=== PATIENT | female | born 1940 | race Caucasian/White ===

== ENCOUNTER 2019-02-13 13:44 | Inpatient (IN) | payer MEDICARE ==
[~2019-02-13] VITALS: Ht 149.9 cm; Wt 51.8 kg
[2019-02-13 16:33] LABS: BASOPHILS ABSOLUTE AUTO 0.04 K/mm3 (0.00-0.23); BASOPHILS PERCENT AUTO 1 % (0-2); EOSINOPHILS ABSOLUTE AUTO 0.04 K/mm3 (0.00-0.68); EOSINOPHILS PERCENT AUTO 1 % (0-6); Hematocrit 49.9 % (33.0-51.0); Hemoglobin 15.2 g/dL (11.5-16.0); IMMATURE GRAN ABSOLUTE AUTO 0.02 K/mm3 (0.00-0.10); IMMATURE GRAN PERCENT AUTO 0 % (0-1); LYMPHOCYTES ABSOLUTE AUTO 1.56 K/mm3 (0.84-5.20); LYMPHOCYTES PERCENT AUTO 21 % (21-46); MONOCYTES ABSOLUTE AUTO 0.69 K/mm3 (0.16-1.47); MONOCYTES PERCENT AUTO 9 % (4-13); Mean Corpuscular HGB 28.8 pg (26.0-34.0); Mean Corpuscular HGB Conc 30.5 g/dL (31.5-36.5); Mean Corpuscular Volume 95 fL (80-100); Mean Platelet Volume 10.7 fL (9.1-12.4); NEUTROPHILS ABSOLUTE AUTO 5.07 K/mm3 (1.96-9.15); NEUTROPHILS PERCENT AUTO 68 % (41-73); Platelet Count 183 K/mm3 (150-400); RDW Coefficient Variation 14.4 % (11.7-14.2); RDW Standard Deviation 50.1 fL (35.1-46.3); Red Blood Cell Count 5.27 M/mm3 (3.80-5.20); White Blood Cell Count 7.42 K/mm3 (4.00-11.30)
[2019-02-13 16:37] LABS: PCO2 Arterial 43.2 mmHg (35-45); PO2 Arterial 70.5 mmHg (80-100); pH Blood Arterial 7.41 (7.35-7.45)
[2019-02-13 17:00] LABS: Albumin/Globulin Ratio 0.9 (0.8-1.8); Bilirubin, Total 0.8 mg/dL (0.1-1.0); Bun/Creatinine Ratio 18.6 (12.0-20.0); Calcium, Blood 8.8 mg/dL (8.5-10.1); Creatinine, Blood 1.02 mg/dL (0.40-1.00); Globulin, Blood 3.5 g/dL (2.2-4.0); Potassium, Blood 4.7 mmol/L (3.5-5.5); Total Protein, Blood 6.5 g/dL (6.4-8.2); Troponin I 0.033 ng/mL (0.000-0.040)
--- NOTE | 2019-02-14 07:33 | NUR ---
SHIFT SUMMARY PT WAS A NEW ADMIT DURING THE NIGHT. SHE WAS ADMITTED FOR VOLUME OVERLOAD. PT IS ABLE TO TRANSFER SBA TO THE [facility]. PT IS A&O X 4. NO COMPLAINTS OF PAIN OR NAUSEA. THIS AM, PT HAD A SUDDEN EPISODE OF SOB AND CHEST "TIGHTNESS", THOUGH SHE DENIED CHEST PAIN. VITALS AND O2 SATS WERE STABLE, THOUGH PT WAS BREATHING RAPIDLY IN THE 30S. A STAT EKG WAS TAKEN, WHICH WAS UNCHANGED FROM PREVIOUS. THE HOSPITALIST DR NUÑEZ WAS INFORMED. NITRO AND ASPIRIN WERE UNABLE TO BE GIVEN DUE TO PT ALLERGIES, SO BREATHING TREATMENTS AND A OT DOSE OF ATIVAN WERE ORDERED. PT REFUSED THE ATIVAN. PT DID REPORT THAT BREATHING IMPROVED WITH POSITIONING, BUT IS STILL REPORTING CHEST PRESSURE. NO OTHER ACUTE CHANGES IN PT CONDITION NOTED. REPORT GIVEN TO ONCOMING RN.
[2019-02-14 08:14] LABS: BASOPHILS ABSOLUTE AUTO 0.05 K/mm3 (0.00-0.23); BASOPHILS PERCENT AUTO 1 % (0-2); EOSINOPHILS ABSOLUTE AUTO 0.21 K/mm3 (0.00-0.68); EOSINOPHILS PERCENT AUTO 3 % (0-6); Hematocrit 43.2 % (33.0-51.0); Hemoglobin 13.5 g/dL (11.5-16.0); IMMATURE GRAN ABSOLUTE AUTO 0.02 K/mm3 (0.00-0.10); IMMATURE GRAN PERCENT AUTO 0 % (0-1); LYMPHOCYTES ABSOLUTE AUTO 1.86 K/mm3 (0.84-5.20); LYMPHOCYTES PERCENT AUTO 28 % (21-46); MONOCYTES ABSOLUTE AUTO 0.83 K/mm3 (0.16-1.47); MONOCYTES PERCENT AUTO 13 % (4-13); Mean Corpuscular HGB 29.4 pg (26.0-34.0); Mean Corpuscular HGB Conc 31.3 g/dL (31.5-36.5); Mean Corpuscular Volume 94 fL (80-100); Mean Platelet Volume 10.3 fL (9.1-12.4); NEUTROPHILS ABSOLUTE AUTO 3.68 K/mm3 (1.96-9.15); NEUTROPHILS PERCENT AUTO 55 % (41-73); Platelet Count 148 K/mm3 (150-400); RDW Coefficient Variation 14.4 % (11.7-14.2); RDW Standard Deviation 49.1 fL (35.1-46.3); Red Blood Cell Count 4.59 M/mm3 (3.80-5.20); White Blood Cell Count 6.65 K/mm3 (4.00-11.30)
[2019-02-14 08:41] LABS: Bun/Creatinine Ratio 17.3 (12.0-20.0); Calcium, Blood 8.5 mg/dL (8.5-10.1); Creatinine, Blood 1.1 mg/dL (0.40-1.00); Potassium, Blood 4.1 mmol/L (3.5-5.5); Troponin I 0.039 ng/mL (0.000-0.040)
--- NOTE | 2019-02-14 18:40 | NUR ---
Initial spiritual care note: Per admit trigger, I was tasked to meet with Janine to offer information regarding Advanced Directive. She tells me that she has been estranged from her adult children and does NOT want them contacted or consulted for decisions on her behalf. She verbalizes understanding of purpose of AD, but wants to soeak to the stuart of her [facility] community before completing paperwork. Advised her to do this soon, especially if she wishes someone besides her family to make decisions on her behalf if/when she cannot. Janine was pleasant and welcoming of prayer/encouragement. I will remain available.
--- NOTE | 2019-02-14 21:34 | NUR ---
REMOVED FIELD START IV IN RIGHT AC. IV SITE WAS PAINFUL AND LEAKING BLOOD. NEW 18 JOI IV INSERTED INTO LEFT WRIST AND FLUSHES WELL. PATIENT TOLERATED WELL.
[2019-02-15 05:12] LABS: BASOPHILS ABSOLUTE AUTO 0.04 K/mm3 (0.00-0.23); BASOPHILS PERCENT AUTO 1 % (0-2); EOSINOPHILS ABSOLUTE AUTO 0.26 K/mm3 (0.00-0.68); EOSINOPHILS PERCENT AUTO 4 % (0-6); Hematocrit 42.4 % (33.0-51.0); Hemoglobin 13.2 g/dL (11.5-16.0); IMMATURE GRAN ABSOLUTE AUTO 0.03 K/mm3 (0.00-0.10); IMMATURE GRAN PERCENT AUTO 0 % (0-1); LYMPHOCYTES ABSOLUTE AUTO 1.66 K/mm3 (0.84-5.20); LYMPHOCYTES PERCENT AUTO 23 % (21-46); MONOCYTES ABSOLUTE AUTO 0.81 K/mm3 (0.16-1.47); MONOCYTES PERCENT AUTO 11 % (4-13); Mean Corpuscular HGB 29.1 pg (26.0-34.0); Mean Corpuscular HGB Conc 31.1 g/dL (31.5-36.5); Mean Corpuscular Volume 93 fL (80-100); Mean Platelet Volume 10.7 fL (9.1-12.4); NEUTROPHILS ABSOLUTE AUTO 4.53 K/mm3 (1.96-9.15); NEUTROPHILS PERCENT AUTO 62 % (41-73); Platelet Count 151 K/mm3 (150-400); RDW Coefficient Variation 14.2 % (11.7-14.2); RDW Standard Deviation 49.1 fL (35.1-46.3); Red Blood Cell Count 4.54 M/mm3 (3.80-5.20); White Blood Cell Count 7.33 K/mm3 (4.00-11.30)
[2019-02-15 05:40] LABS: Anion Gap 5 mmol/L (6-16); Blood Urea Nitrogen 21 mg/dL (8-24); Bun/Creatinine Ratio 18.3 (12.0-20.0); CHOL/HDL RATIO 3.2; CO2, Blood 33 mmol/L (21-32); Calcium, Blood 8.4 mg/dL (8.5-10.1); Chloride, Blood 99 mmol/L (98-108); Cholesterol 112 mg/dL (50-200); Creatinine, Blood 1.15 mg/dL (0.40-1.00); Glomerular Filtration Rate 49 (60-); Glucose, Blood 195 mg/dL (70-99); HDL Cholesterol 35 mg/dL (>39); LDL/HDL RATIO 1.7; Low Density Lipoprotein Chol 59 mg/dL (0-110); Potassium, Blood 3.9 mmol/L (3.5-5.5); Sodium, Blood 137 mmol/L (136-145); Triglycerides 91 mg/dL (30-160); Very Low Density Lipoprot Chol 18 mg/dL (6-32)
--- NOTE | 2019-02-15 06:44 | NUR ---
SHIFT SUMMARY PATIENT ALERT AND ORIENTED ALL NIGHT. SHE HAS MADE IT KNOWN THAT SHE IS VERY NERVOUS AT THE THOUGHT OF A POSSIBLE THRACENTESIS TODAY. SHE IS CURRENTLY ON 3 LITERS O2 VIA NASAL CANULA. PATIENT HAD NO COMPLAINT OF PAIN. IV PATENT AND FLUSHED. BED IN LOWEST POSITION WITH WHEELS LOCKED. CALL LIGHT AND BELONGINGS WITHIN REACH. REPORT GIVEN TO ONCOMING NURSE.
[2019-02-15 08:50] LABS: International Normalized Ratio 1.13; Prothrombin Time Results 11.8 Sec (9.7-11.5)
--- NOTE | 2019-02-15 18:56 | NUR ---
PT. SITTING IN BED IN GOOD SPIRITS. HAD THORACENTESIS OF RIGHT LUNG TODAY REMOVED 750 CC OF YELLOW FLUID, NPO AFTER MIDNIGHT FOR THORACENTIESIS OF LEFT LUNG. BANDAID ON RIGHT BACK CD&I. NO LOVENOX.
--- NOTE | 2019-02-15 20:42 | NUR ---
PT SITTING UP IN BED, DENIES PAIN AT THIS TIME. RT HAS GIVEN A TREATMENT AND SHE IS FEELING COMFORTABLE JUST NOW, HAS SOME DISCOMFORT WITH COUGHING. DISCUSSED THAT SHE SHOULD NOT EAT OR DRINK ANYTHING AFTER MIDNIGHT FOR HER THOROCENTESIS TOMORROW. PT IS AO4, PLEASANT AND COOPERATIVE WITH CARE. PT REPORTS NEUROPATHY (NOT NEW) B/L HANDS AND FEET. 1+ EDEMA B/L LEs. PT OOB TO BSC TO VOID.
--- NOTE | 2019-02-15 23:31 | NUR ---
2240: RECHECKING PT VS FOR LOW BP AT 2130. NOW 90s/50s. PT LUNG SOUNDS ARE DIMINSHED NOW, ESPECIALLY ON THE RIGHT WHERE SHE WAS GOOD AND CLEAR AT START OF SHIFT. PT FOUND TO BE DE-SATURATING TO 86% ON 2L; BUMPED TO 6.5L AND CALLED RT. PT BPS TOO LOW FOR LASIX. DISCUSSED WITH RN CAMP. CALLED TO RASHEED ORTIZ WHO ORDERED A STAT CHEST ERAY AND WILL COME SEE THE PATIENT. WILL CONTIUE TO MONITOR. BED LOW LOCKED AND ALARMED. CALL LARA WITHIN REACH. CHEST XRAY COMPLETED.
[2019-02-16 04:32] LABS: BASOPHILS ABSOLUTE AUTO 0.02 K/mm3 (0.00-0.23); BASOPHILS PERCENT AUTO 0 % (0-2); EOSINOPHILS ABSOLUTE AUTO 0.15 K/mm3 (0.00-0.68); EOSINOPHILS PERCENT AUTO 3 % (0-6); Hematocrit 44.1 % (33.0-51.0); Hemoglobin 13.9 g/dL (11.5-16.0); IMMATURE GRAN ABSOLUTE AUTO 0.01 K/mm3 (0.00-0.10); IMMATURE GRAN PERCENT AUTO 0 % (0-1); LYMPHOCYTES ABSOLUTE AUTO 1.45 K/mm3 (0.84-5.20); LYMPHOCYTES PERCENT AUTO 24 % (21-46); MONOCYTES ABSOLUTE AUTO 0.73 K/mm3 (0.16-1.47); MONOCYTES PERCENT AUTO 12 % (4-13); Mean Corpuscular HGB Conc 31.5 g/dL (31.5-36.5); Mean Corpuscular Volume 92 fL (80-100); Mean Platelet Volume 10.8 fL (9.1-12.4); NEUTROPHILS ABSOLUTE AUTO 3.65 K/mm3 (1.96-9.15); NEUTROPHILS PERCENT AUTO 61 % (41-73); Platelet Count 144 K/mm3 (150-400); RDW Standard Deviation 47.5 fL (35.1-46.3); Red Blood Cell Count 4.79 M/mm3 (3.80-5.20); White Blood Cell Count 6.01 K/mm3 (4.00-11.30)
[2019-02-16 04:58] LABS: Bun/Creatinine Ratio 19.2 (12.0-20.0); Calcium, Blood 8.6 mg/dL (8.5-10.1); Creatinine, Blood 1.2 mg/dL (0.40-1.00); Potassium, Blood 3.7 mmol/L (3.5-5.5)
--- NOTE | 2019-02-16 16:30 | NUR ---
PT IS A/OX3, PLEASANT AND COOPERATIVE, THE PT IS UP IND TO THE BSC, SOB WITH MINIMAL EXCERTION, THIS AM THE PT WAS ON 5L/MIN O2 VIA NC, THIS AFTERNOON THE PT HAD A THOROCENTISIS PROCEDURE DONE ON THE LEFT SIDE, THE PT WAS ABLE TO BREATH EASIER AND O2 WAS TURNED DOWN TO 3L/MIN PT'S O2 SATS ARE >90% AT THIS TIME, THE PT DEVELOPED A DRY HACKING PERSISTANT COUGH S/P THOROCENTISIS, A CALL WAS MADE TO DR. CHAVEZ AND ORDERS WERE GIVEN, TESSALON PEARLS WERE GIVEN FOR COUGH, AT THIS TIME THE PT IS UP WITH THE PHYSICAL THERAPIST AND AMBULATED A SHORT DISTANCE IN HER ROOM, CALL LIGHT IN REACH, WILL CONTINUE TO MONITOR AND ASSESS FOR CHANGES
--- NOTE | 2019-02-16 23:27 | NUR ---
AT SHIFT COMMENCE, BP WAS 80/57 PER MACHINE. (SEE DOC FLOW SHEETS), PANCAKE PROFESSIONAL WAS NOTIFIED AND ORDERED TO MONITOR PT HAD SIMILAR ISUES 24 HR PREVIOUS. (THORACENTESIS, ETC). ALERT AND ORIENTED, UP WITH ASSIST. AROUND 2230, BP WA UNABLE TO BE OBTAINED BY MACHINE, WEAK BP PER MANUAL OBTAINED (80/50), VOICED LETHARGY. PANCAKE PROFESSIONAL WAS NOTIFIED AGAIN, ORDERS FOR ALBUMIN OBTAINED. ALBUMIN CURRENTLY INFUSING. WILL CONTINUE TO MONITOR.
--- NOTE | 2019-02-17 03:58 | NUR ---
BP HAS BEEN LOW MOST OF THE SHIFT, WSA DROPPING TO THE 80'S OVER 30'S - SEE DOC FLOW SHEETS. LABORATORY COORDINATOR NOTIFIED, ALBUMIN ADMINISTERED, LATEST BP WAS 95/54. MORE ALERT AND RESPONSIVE TO QUESTIONS ASKED. TOLERATING FLUIDS BETTER THAN BEFORE. CALL LIGHT IN REACH. WILL CONTINUE TO MONITOR.
--- NOTE | 2019-02-17 04:20 | NUR ---
BP 107/66. BP WAS LOW 80/36, BUT ALBUMININ WAS ADMINSINERED PER RETAIL SERVICE SPECIALIST ORDERS, MED EFECIVE. RESTING QUIETLY AT IN TERVALS SINCE. VOIDING QS. AWAKE ERALIER, VOICED FEELING BETTER. CALL LIGHT IN REACH. FEET REMAIN ELEVATED.
[2019-02-17 05:38] LABS: Bun/Creatinine Ratio 17.1 (12.0-20.0); Calcium, Blood 8.1 mg/dL (8.5-10.1); Creatinine, Blood 1.11 mg/dL (0.40-1.00); Potassium, Blood 3.7 mmol/L (3.5-5.5)
--- NOTE | 2019-02-17 19:09 | NUR ---
SHIFT SUMMARY JUDITH DENIED PAIN THIS SHIFT. COMPLAINED OF NAUSEA X2 BUT DECLINED ANTIEMETIC. REFUSED INSULIN ALSO. TELE SHOWING NSR. SBA TO BR WITH WALKER, PT CALLS APPROPRIATELY. FRIENDS VISITED. PT RESTED COMFORTABLY IN BED MOST OF AFTERNOON. CALL LIGHT IN REACH, WCTM
--- NOTE | 2019-02-18 02:54 | NUR ---
VSS. Resting quietly with few interuptions. Up to bathroom with walker and observation. No noted acute distress. Call light in reach. Will continue to monitor.
[2019-02-18 05:25] LABS: BASOPHILS ABSOLUTE AUTO 0.02 K/mm3 (0.00-0.23); BASOPHILS PERCENT AUTO 0 % (0-2); EOSINOPHILS ABSOLUTE AUTO 0.21 K/mm3 (0.00-0.68); EOSINOPHILS PERCENT AUTO 3 % (0-6); Hematocrit 42.2 % (33.0-51.0); Hemoglobin 12.9 g/dL (11.5-16.0); IMMATURE GRAN ABSOLUTE AUTO 0.01 K/mm3 (0.00-0.10); IMMATURE GRAN PERCENT AUTO 0 % (0-1); LYMPHOCYTES ABSOLUTE AUTO 1.37 K/mm3 (0.84-5.20); LYMPHOCYTES PERCENT AUTO 20 % (21-46); MONOCYTES ABSOLUTE AUTO 0.89 K/mm3 (0.16-1.47); MONOCYTES PERCENT AUTO 13 % (4-13); Mean Corpuscular HGB 28.7 pg (26.0-34.0); Mean Corpuscular HGB Conc 30.6 g/dL (31.5-36.5); Mean Corpuscular Volume 94 fL (80-100); Mean Platelet Volume 10.8 fL (9.1-12.4); NEUTROPHILS ABSOLUTE AUTO 4.37 K/mm3 (1.96-9.15); NEUTROPHILS PERCENT AUTO 64 % (41-73); Platelet Count 123 K/mm3 (150-400); RDW Coefficient Variation 13.7 % (11.7-14.2); RDW Standard Deviation 47.8 fL (35.1-46.3); Red Blood Cell Count 4.49 M/mm3 (3.80-5.20); White Blood Cell Count 6.87 K/mm3 (4.00-11.30)
[2019-02-18 05:53] LABS: Albumin, Blood 2.5 g/dL (3.4-5.0); Anion Gap 5 mmol/L (6-16); Blood Urea Nitrogen 17 mg/dL (8-24); Bun/Creatinine Ratio 15.7 (12.0-20.0); CO2, Blood 40 mmol/L (21-32); Calcium, Blood 8.4 mg/dL (8.5-10.1); Chloride, Blood 95 mmol/L (98-108); Creatinine, Blood 1.08 mg/dL (0.40-1.00); Glomerular Filtration Rate 52 (60-); Glucose, Blood 101 mg/dL (70-99); Phosphorus, Blood 2.7 mg/dL (2.5-4.9); Potassium, Blood 4.3 mmol/L (3.5-5.5); Sodium, Blood 140 mmol/L (136-145)
--- NOTE | 2019-02-18 18:04 | NUR ---
SHIFT SUMMARY PT 1 PERSON ASSIST UP TO BATHROOM USING A CLAUDIA WALKER. HAS BEEN REPORTING ONGOING EPIGASTRIC PAIN THAT EBBS AND FLOWS AND WORSENS WHEN SHE GETS UP OR SITS UP. DECLINES ANYTHING STATING ITS HER NORMAL. HOPES TO DISCHARGE TOMORROW. SOB WITH EXERTION.
--- NOTE | 2019-02-19 05:08 | NUR ---
Has been resting quietly with a few interruptions. Noted slight epistaxis x 3, was notified and was instructed to continue to monitor pt. Up to bathroom with assist x 2. And received Zofran x 1 for N/V. Currently resting quietly. Call light in reach. Will continue to monitor.
[2019-02-19 05:25] LABS: Bun/Creatinine Ratio 14.5 (12.0-20.0); Calcium, Blood 8.4 mg/dL (8.5-10.1); Creatinine, Blood 1.1 mg/dL (0.40-1.00); Potassium, Blood 3.9 mmol/L (3.5-5.5)
--- NOTE | 2019-02-19 07:00 | NUR ---
ASSUMED CARE OF PT- BEDSIDE REPORT COMPLETED WITH [facility] RN ROB. PER REPORT PT HAD SOME LOW PRESSURES RECENTLY. PT ON TELE RUNNING NSR. PT C/O UPSET STOMACH THIS MORNING. WHEN OFFERED MEDICATION PT SAID "I DON'T HAVE A STOMACH, WHAT I HAVE ARE POLLYPS ALL OVER." PT DECLINED ANY MEDICINE FOR UPSET STOMACH.
--- NOTE | 2019-02-19 08:45 | NUR ---
SPOKE TO DR LO. PT SBP LESS THAN 100 ALL BP MEDS HELD. IV LASIX TO BE CHANGED TO PO NO MORNING DOSE GIVEN. DR ROBERTSON.
--- NOTE | 2019-02-19 12:25 | NUR ---
INITIAL PAL CARE ASSESSMENT: PT IS 78 YEAR OLD SINGLE FEMALE WHO HAS REQUESTED HELP WITH COMPLETING AN AD. SHE REPORTS SHE HAS CHILDREN, SOME LOCALLY, BUT "NONE OF THEM HAVE ANYTHING TO DO WITH ME". SHE IS CONCERNED THAT THEY WOULD BE ALLOWED TO OVERIDE HER OR HER APPOINTED SURROGATE DECISION MAKER'S CHOICES. PT IS LYING IN BED, CURLED ON HER SIDE WITH HOB ELEVATED, SPEAKING WITH ME AND HER FRIEND FROM [employer]. SHE HAS A BLANK AD FORM ON HER BED STAND. SHE STATES SHE HAS BEEN TOO TIRED TO WORK ON IT. SHE IS SL DYSPNIC WITH CONVERSATION. SHE HAS A NASAL CANULA WITH O2 AND EVIDENCE OF EPISTAXIX RECENTLY WITH BLOOD STAINED CANULA. 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 SHE HAS EXPRESSED WANTING TO BE A DNR AND HER ORDERS REFLECT THIS. PT DENIES CHEST PAIN BUT REPORTS ABDOMINAL PAIN FROM "HUNDREDS OF POLYPS". SHE SAID HER COMFORT LEVEL IS AT BASELINE FOR HER NORM. SHE DENIES ANY DISTRESSING S/S, ANXIETY, HINOJOSA, NAUSEA OR PAIN. SHE DOES APPEAR SLIGHTLY ANXIOUS REGARDING MEDICAL DECISION MAKING AND SOBOE. SHE WOULD LIKE HER HUSSEIN OR FRIEND TO BE HER MEDICAL POA BUT HAS NOT SPOKEN TO THEM ABOUT IT YET. WE DISCUSSED DOCUMENTING HER WISHES FOR HER CARE IN THE AD WOULD BE A STEP IN ALEVIATING THE BURDEN FOR A DECISION MAKER TO ACT ON HER BEHALF VS HAVING TO DECIDE FOR HER WITHOUT PRIOR KNOWLEDGE OF HER WISHES. WE REVIEWED THE ADVANCED DIRECTIVE FORM, WORKSHEETS AND PROCESS. I OFFERED TO RETURN IF SHE WOULD LIKE ME TO HELP WHEN SHE WAS FEELING UP TO IT. SHE MENTIONED POSSIBLY GOING TO [facility] SOON AND I ENCOURAGED HER TO CONTINUE WORKING ON IT AND GETTING SIGNATURES OF ALTERNATE DECISION MAKERS AND WITNESSES SO SHE WOULD FEEL LESS STRESSED ABOUT THE POSSIBILITY OF HAVING AN UNDESIRABLE FAMILY MEMBER MAKE DECISIONS FOR HER. INSTRUCTED HER TO SUPPLY HER DR, [place] AND HOSPITAL WITH A COPY ONCE IT WAS COMPLETED. PLANNED WITH HER TO CHECK IN WITH HER TOMORROW AND KERRI IF SHE IS STILL HERE. FRIEND AT BEDSIDE SEEMED SUPPORTIVE AND VERBALLY AGREED SHE WOULD BE WILLING TO HELP PT. PT ALSO HAD QUESTIONS ABOUT PRE-PAYING ARRANGEMENTS AND I DIRECTED HER TO CONTACT LOCAL HOMES RE: RULES, WAYS TO DO THAT.
--- NOTE | 2019-02-19 17:19 | NUR ---
SHIFT SUMMARY- PT ALERT AND ORIENTED, 1PA TO THE BATHROOM AND WITH AMBULATION. PT HAS HAD HYPOTENSION RECENTLY, SBP THIS MORNING LESS THAN 100 NO BP MEDS GIVEN PER PARAMETERS. THIS EVENINGS DOSE OF CARVEDILOL WAS GIVEN SBP 106. PT NSR ON TELE RECIEVED ORDER TO CONTINUE TELE PER DR LO. PT LAYING IN BED CALL LIGHT IN REACH. PT ADIMANTLY REFUSES INSULIN DESPITE HER BG OF 250. PT STATES SHE GETS EXTREMELY WEAK IF HER SUGARS ARE LESS THAN 200. PLAN IS TO DC PT TO SNF WHEN SHE IS STABLE. DNR BAND ON THE RIGHT WRIST.
--- NOTE | 2019-02-20 05:38 | NUR ---
02/20/19 0530 PT SLEPT WELL. VITALS STABLE AND DID WELL ON FLUID RESTRICTION. UP TO THE BATHROOM WITH HELP FOR VOIDINGS. O2 AT 3LPM VIA N/C THIS SHIFT.
[2019-02-20 06:15] LABS: Albumin, Blood 2.4 g/dL (3.4-5.0); Anion Gap 4 mmol/L (6-16); Blood Urea Nitrogen 19 mg/dL (8-24); Bun/Creatinine Ratio 17.6 (12.0-20.0); CO2, Blood 35 mmol/L (21-32); Calcium, Blood 8.5 mg/dL (8.5-10.1); Chloride, Blood 100 mmol/L (98-108); Creatinine, Blood 1.08 mg/dL (0.40-1.00); Glomerular Filtration Rate 52 (60-); Glucose, Blood 120 mg/dL (70-99); Phosphorus, Blood 2.6 mg/dL (2.5-4.9); Potassium, Blood 4.3 mmol/L (3.5-5.5); Sodium, Blood 139 mmol/L (136-145)
--- NOTE | 2019-02-20 18:44 | NUR ---
PT. STILL EATING ON HER DINNER. TOLERATING WELL. REPORTED HEADACHE EARLIER AND DR. LO SAID TO WRITE AN ORDEER FOR TYLENOL, UPON SEEING SHE WAS ALLERGIC I DID NOT PUT THE ORDER IN. DR. LO WROTE FOR ULTRAM BUT THE PT. REFUSED. WAS GIVEN A COLD WASH CLOTH AND SHE REPORTED IT WAS MUCH BETTER. POSSIBLE DISCHARGE TO [facility] TOMORROW. NO OTHER NOTEABLE CHANGES.
--- NOTE | 2019-02-21 05:37 | NUR ---
02/21/19 0455 C/O SLIGHT NAUSEA. MEDICATED PER APR. BLOOD SUGAR CHECKED AND IT WAS 161. VITALS STABLE THIS SHIFT. SLEPT POORLY FOR NON-SPECIFIC REASONS. STATES SHE HAS CHRONIC SLEEP PROBLEMS FOR YEARS. RN ATTEMPTED TO CHANGE IV SITE FOR ROUTINE ROTATION BUT UNABLE X 2 ATTEMPTS. PRESENT IV LEFT IN PLACE.
--- NOTE | 2019-02-21 17:46 | NUR ---
SHIFT SUMMARY: NO ACUTE CHANGES TO REPORT THIS SHIFT. PT A&O; CALM AND COOPERATIVE WITH CARE. NO C/O PAIN THIS SHIFT; ONE COMPLAINT OF NAUSEA, BUT REFUSING MEDS-STATES SALTINE CRACKERS WILL SUFFICE. PT UP WITH 1-ASSIST c WALKER TO BATHROOM. PATIENT REFUSING ANY INSULIN COVERAGE FOR HER ELEVATED BLOOD SUGARS; STATES INSULIN ADMINISTRATION HAS ALMOST KILLED HER TWICE IN THE PAST. PATIENT MEDICALLY STABLE AND READY FOR DISCHARGE; EXPECTED D/C TO [facility] 02/22. WCTM.
--- NOTE | 2019-02-22 04:26 | NUR ---
SHIFT SUMMARY AOX4. VSS. TELE IN PLACE, RUNNING NSR HR@82. DENIES DYSPNEA @REST. DECREASED O2 FROM 3L TO 1.5L & SPO2 @92%. E/U RESPIRATIONS. LUNGS SOUND DIM T/O LLL IS COURSE TO AUSCULTATION. REPORTS NAUSEA THIS AM, YET DENIES NEED FOR ANY NAUSEA MEDICATION, STATES SHE USUALLY GETS NAUSEOUS IN THE AM & "SALTINES HELP." CALL LIGHT IN REACH. WCTM.
[2019-02-22] MEDS ORDERED: ATOR10 PO (10:41)
[2019-02-22] MEDS ORDERED: ALBU2.5V5 INH (10:41)
[2019-02-22] MEDS ORDERED: CARV3.125 PO (10:42)
[2019-02-22] MEDS ORDERED: BENZ100A PO (10:42)
[2019-02-22] MEDS ORDERED: LOSA25 PO (10:43)
[2019-02-22] MEDS ORDERED: GLIM2 PO (10:43)
[2019-02-22] MEDS ORDERED: FURO40 PO (10:43)
[2019-02-22] MEDS ORDERED: POTA10T PO (10:43)
[2019-02-22] MEDS ORDERED: TRAM50 PO (10:44)
[2019-02-22] MEDS ORDERED: XARELTO15 MG PO (10:44)
[2019-02-22] MEDS ORDERED: LEVO750 PO (10:45)
--- NOTE | 2019-02-22 11:51 | NUR ---
PT DISCHARGED PT DISCHARGED TO [facility], REPORT WAS CALLED TO AND GIVEN TO THE NURSE INVENTORY MANAGER AT [facility] THE PT WAS TRANSPORTED VIA WHEELCHAIR ACCOMPANIED BY [facility], PT WAS ON RA AT THE TIME OF DISCHARGE O2 SAT'S WERE > 90%, BELONGINGS RELEASED TO THE PT
== END 2019-02-22 10:26 | DRG 291 ==
LOC: ER 13:44 → MEDS 17:58
PROVIDERS: Family Medicine; Internal Medicine Cardiovascular Disease; Nurse Practitioner Acute Care; Physician Assistant; ADMIT Hospitalist
PROC: 0W9930Z Drainage of Right Pleural Cavity with Drainage Device, Percutaneous Approach (ICD-10-PCS; principal; 2019-02-15)
DX: I13.0 Hypertensive heart and chronic kidney disease with heart failure and stage 1 through stage 4 chronic kidney disease, or unspecified chronic kidney disease (principal); J96.01 Acute respiratory failure with hypoxia; I50.21 Acute systolic (congestive) heart failure; J18.9 Pneumonia, unspecified organism; J44.0 Chronic obstructive pulmonary disease with (acute) lower respiratory infection; N17.9 Acute kidney failure, unspecified; I25.2 Old myocardial infarction; I25.10 Atherosclerotic heart disease of native coronary artery without angina pectoris; Z86.73 Personal history of transient ischemic attack (TIA), and cerebral infarction without residual deficits; Z66 Do not resuscitate; E78.5 Hyperlipidemia, unspecified; D69.6 Thrombocytopenia, unspecified; E87.6 Hypokalemia; E11.22 Type 2 diabetes mellitus with diabetic chronic kidney disease; N18.3 Chronic kidney disease, stage 3 (moderate); R04.0 Epistaxis; T45.515A Adverse effect of anticoagulants, initial encounter; Y92.239 Unspecified place in hospital as the place of occurrence of the external cause; I95.9 Hypotension, unspecified; I25.5 Ischemic cardiomyopathy; I51.3 Intracardiac thrombosis, not elsewhere classified
CPT/HCPCS: 32555; 36415; 36600; 51798; 71045; 71046; 74018; 76770; 80048; 80053; 80061; 80069; 82803; 82947; 83036; 83880; 84145; 84443; 84484; 85025; 85610; 85730; 93005; 93010; 93306; 94640; 94667; 94760; 96374; 97110; 97116; 97162; 97166; 97530; 97535; 99285-25; J1650; J1940; J1956; J2405; P9046

== ENCOUNTER 2020-05-23 13:50 | Inpatient (IN) | payer OTHER, MEDICARE ==
[~2020-05-23] VITALS: Ht 147.3 cm; Wt 52.1 kg
[~2020-05-23 13:50] MED LIST: ALBU2.5V5 INH; ATOR10 PO; BENZ100A PO; CARV3.125 PO; FURO40 PO; GLIM2 PO; LEVO750 PO; LOSA25 PO; POTA10T PO; TRAM50 PO; XARELTO15 MG PO
[2020-05-23 17:08] LABS: BASOPHILS ABSOLUTE AUTO 0.06 K/mm3 (0.00-0.23); BASOPHILS PERCENT AUTO 0 % (0-2); EOSINOPHILS ABSOLUTE AUTO 0.02 K/mm3 (0.00-0.68); EOSINOPHILS PERCENT AUTO 0 % (0-6); Hematocrit 42.5 % (33.0-51.0); Hemoglobin 14.6 g/dL (11.5-16.0); IMMATURE GRAN ABSOLUTE AUTO 0.14 K/mm3 (0.00-0.10); IMMATURE GRAN PERCENT AUTO 1 % (0-1); LYMPHOCYTES ABSOLUTE AUTO 1.89 K/mm3 (0.84-5.20); LYMPHOCYTES PERCENT AUTO 11 % (21-46); MONOCYTES ABSOLUTE AUTO 1.12 K/mm3 (0.16-1.47); MONOCYTES PERCENT AUTO 7 % (4-13); Mean Corpuscular HGB 30.1 pg (26.0-34.0); Mean Corpuscular HGB Conc 34.4 g/dL (31.5-36.5); Mean Corpuscular Volume 88 fL (80-100); NEUTROPHILS ABSOLUTE AUTO 13.61 K/mm3 (1.96-9.15); NEUTROPHILS PERCENT AUTO 81 % (41-73); Platelet Count 191 K/mm3 (150-400); RDW Coefficient Variation 12.4 % (11.7-14.2); RDW Standard Deviation 39.6 fL (35.1-46.3); Red Blood Cell Count 4.85 M/mm3 (3.80-5.20); White Blood Cell Count 16.84 K/mm3 (4.00-11.30)
[2020-05-23 17:26] LABS: International Normalized Ratio 0.96; Prothrombin Time Results 10.3 Sec (9.7-11.5)
[2020-05-23 17:27] LABS: Alanine Aminotransfer (ALT/SGP 28 U/L (12-78); Albumin, Blood 3.8 g/dL (3.4-5.0); Alk Phos 132 U/L (50-136); Anion Gap 10 mmol/L (6-16); Aspartate Aminotrans (AST/SGOT 26 U/L (12-37); Bilirubin, Total 0.6 mg/dL (0.1-1.0); Blood Urea Nitrogen 22 mg/dL (8-24); Bun/Creatinine Ratio 23.7 (12.0-20.0); CO2, Blood 22 mmol/L (21-32); Calcium, Blood 9.4 mg/dL (8.5-10.1); Chloride, Blood 107 mmol/L (98-108); Creatinine, Blood 0.93 mg/dL (0.40-1.00); Globulin, Blood 3.8 g/dL (2.2-4.0); Glomerular Filtration Rate >60 (60-); Glucose, Blood 420 mg/dL (70-99); Potassium, Blood 3.8 mmol/L (3.5-5.5); Sodium, Blood 139 mmol/L (136-145); Total Protein, Blood 7.6 g/dL (6.4-8.2)
[2020-05-23 22:38] LABS: Influenza A, PCR NEGATIVE (NEGATIVE); Influenza B, PCR NEGATIVE (NEGATIVE); Resp Syncytial Virus, PCR NEGATIVE (NEGATIVE); SARS-Cov-2 (COVID-19) PCR, MMC NEGATIVE (NEGATIVE)
--- NOTE | 2020-05-24 05:36 | NUR ---
SHIFT SUMMARY ASSUMED CARE OF PT AT 2200. PT IS A/OX4. HEART SOUNDS REGULAR, LUNG SOUNDS CLEAR. PT IS INCONTIENT OF URINE. PT IS VERY PAINFUL BUT RFUSED TO TAKE NORCO DUE TO THE FACT THAT SHE IS "ALLERGIC" TO IT. PT DID RECEIVE FENYAL IN ED, WHEN ASKED WHAT SHE COULD HAVE FOR PAIN, PT ASKED IF SHE COULD HAVE THIS. PT WAS INITIALLY GIVEN 25MCG WITH LITTLE EFFECTS, PT WAS THEN GIVEN 50MGC TWO HOURS LATER AND PT VOMITED. PT STATES ITS BEUCASE "SHE IS ALLERGIC TO THINGS". PT HAS BEEN ON CLEAR LIQUIDS SINCE 0000 FOR SURGUERY THIS AM. PT IS VERY AFRAID OF DYING IN THE OPERATING ROOM BEUCASE SHE IS ALLERGIC TO THE ANESTESIA. PT HAS HAD 'CAREGIVER' IN ROOM WITH HER T/O THE NIGHT. SHE SAID THAT THEY ARE GOOD FRIENDS AND SHE HAS HEALTH PROXY. FORMS IN CHART. SHE SAYS THAT SHE NEEDS TO BE THERE MENTALLY FOR PATIENT. CALL LIGHT IN REACH, BED IN LOWEST POSTION.
[2020-05-24 05:38] LABS: BASOPHILS ABSOLUTE AUTO 0.04 K/mm3 (0.00-0.23); BASOPHILS PERCENT AUTO 0 % (0-2); EOSINOPHILS ABSOLUTE AUTO 0.04 K/mm3 (0.00-0.68); EOSINOPHILS PERCENT AUTO 0 % (0-6); Hematocrit 40.5 % (33.0-51.0); Hemoglobin 13.8 g/dL (11.5-16.0); IMMATURE GRAN ABSOLUTE AUTO 0.05 K/mm3 (0.00-0.10); IMMATURE GRAN PERCENT AUTO 0 % (0-1); LYMPHOCYTES ABSOLUTE AUTO 1.63 K/mm3 (0.84-5.20); LYMPHOCYTES PERCENT AUTO 13 % (21-46); MONOCYTES ABSOLUTE AUTO 1.11 K/mm3 (0.16-1.47); MONOCYTES PERCENT AUTO 9 % (4-13); Mean Corpuscular HGB 30.1 pg (26.0-34.0); Mean Corpuscular HGB Conc 34.1 g/dL (31.5-36.5); Mean Corpuscular Volume 88 fL (80-100); Mean Platelet Volume 10.6 fL (9.1-12.4); NEUTROPHILS ABSOLUTE AUTO 9.44 K/mm3 (1.96-9.15); NEUTROPHILS PERCENT AUTO 77 % (41-73); Platelet Count 146 K/mm3 (150-400); RDW Coefficient Variation 12.9 % (11.7-14.2); RDW Standard Deviation 41.8 fL (35.1-46.3); Red Blood Cell Count 4.58 M/mm3 (3.80-5.20); White Blood Cell Count 12.31 K/mm3 (4.00-11.30)
[2020-05-24 06:04] LABS: Alanine Aminotransfer (ALT/SGP 27 U/L (12-78); Albumin, Blood 3.2 g/dL (3.4-5.0); Albumin/Globulin Ratio 0.8 (0.8-1.8); Alk Phos 98 U/L (50-136); Anion Gap 8 mmol/L (6-16); Aspartate Aminotrans (AST/SGOT 24 U/L (12-37); Blood Urea Nitrogen 19 mg/dL (8-24); Bun/Creatinine Ratio 21.2 (12.0-20.0); CO2, Blood 24 mmol/L (21-32); Calcium, Blood 9.1 mg/dL (8.5-10.1); Chloride, Blood 108 mmol/L (98-108); Globulin, Blood 3.8 g/dL (2.2-4.0); Glomerular Filtration Rate >60 (60-); Glucose, Blood 336 mg/dL (70-99); Magnesium, Blood 2.1 mg/dL (1.6-2.4); Potassium, Blood 4.6 mmol/L (3.5-5.5); Sodium, Blood 140 mmol/L (136-145)
--- NOTE | 2020-05-24 12:00 | NUR ---
TRANSFER NOTE PT TRANSFERRED TO OR FOR R HIP SURGERY. PT AxOx4 WITH HEALTHCARE PROXY, KITTY, IN ROOM. PT NPO FOR SURGERY. BLOOD CONSENT FORM SIGNED. MEDICATED FOR PAIN THIS AM. PT REFUSED ALL OTHER MEDICATIONS THIS AM, INCLUDING CARDIAC MEDS AND INSULIN. PT VERY ANXIOUS AND FEARFUL FOR SURGERY. REPORTS HAVING BAD EXPERIENCES WITH SURGERY AND MEDICAL ERROR IN THE PAST LEADING TO FURTHER HEALTHCARE COMPLICATIONS. THERAPEUTIC COMMUNICATION PROVIDED. REPORT CALLED TO DAMASO MAX ON SURGICAL FLOOR AFTER PT WAS TAKEN TO OR. VITALS REVIEWED. PT DENIES ANY NEEDS AT THIS TIME. PT TRANSFERRED SAFELY TO OR IN BED WITH XIN HAYES.
--- NOTE | 2020-05-24 16:16 | NUR ---
05/24/20 1616 [facility],HIGINIO X2 K WIRES USED [id number], REF # [id number], LOT# [id number], EXP 10/28/24. REF# [id number], LOT# [id number], EXP 10-28-24
--- NOTE | 2020-05-24 16:31 | NUR ---
PT ARRIVED TO UNIT AT APROX 1615 FROM PACU. PT IS A/O, ANSWERS QUESTIONS APPROPRIATLY. PT REPORTS THAT SHE IS PAINFUL BUT TOLERABLE, FALLS BACK ASLEEP EASILY. DENIES N/V AT TIME OF ARRIVAL.
--- NOTE | 2020-05-25 04:18 | NUR ---
SHIFT SUMMARY PT HAS BEEN A/O X4. BEDREST R/T PAIN, REPOSITIONED TOLERATED. SCDS IN PLACE. PT HAS BEEN MOSTLY UNABLE TO VOID. BLADDER SCAN SHOWED OVER 500. PT PLACED ON BEDPAN AND ABLE TO VOID SMALL AMOUNT. DISCUSSED VOIDING POST-OP AND URINARY RETENTION. PT STATED THAT SHE CANNOT HAVE A CATHETER OF ANY TYPE FOR ANY REASON. BIOINFORMATICS ASSISTANT AWARE. ATTENS IN PLACE. PAIN MANAGED WITH 25 FENTANYL PER ORDERS. IV FLUIDS HAVE BEEN INFUSING OVERNIGHT. PT USING O2 POST-OP. WEANED FROM 3L DOWN TO 1.5L OVERNIGHT. PT IS RESTING IN BED AT THIS TIME WITH CALL LIGHT IN REACH.
--- NOTE | 2020-05-25 16:51 | NUR ---
SHIFT SUMMARY PT A&OX4, VSS/RA, POD1 R HIP NAILING, AQUACEL DRY/INTACT, WBAT. AMBULATES W/FWW/GB, STAND PIVOT TO BSC, CHAIR, TERESITA PO CLEAR/FULL LIQUID. PHYSICAL THERAPY EVAL'D. VOIDING WELL. DENIES NEED FOR PAIN MEDICATION, LIDOCAINE PATCH RIGHT THIGH. WILL REPORT TO ONCOMING NOC RN.
--- NOTE | 2020-05-26 04:49 | NUR ---
SHIFT SUMMARY PT IS A/O X4. 1X ASSIST WITH FWW AND GAIT BELT UP TO BSC. PT HAS REPORTED DISCOMFORT OVERNIGHT IN HIP BUT HAS REFUSED PAIN MEDICATIONS. PT ALSO REPORTED DISCOMFORT IN HEELS. HEEL PROTECTORS PLACED AND HEELS FLOATED WITH LEGS ON PILLOWS. SHE IS TOLERATING PO INTAKE W/O NAUSEA. PT RESTING IN BED AT THIS TIME, CALL LIGHT IN REACH.
[2020-05-26 05:11] LABS: Hematocrit 32.2 % (33.0-51.0); Hemoglobin 10.5 g/dL (11.5-16.0); Mean Corpuscular HGB 30.1 pg (26.0-34.0); Mean Corpuscular HGB Conc 32.6 g/dL (31.5-36.5); Mean Corpuscular Volume 92 fL (80-100); Mean Platelet Volume 10.3 fL (9.1-12.4); Platelet Count 124 K/mm3 (150-400); RDW Standard Deviation 43.8 fL (35.1-46.3); Red Blood Cell Count 3.49 M/mm3 (3.80-5.20); White Blood Cell Count 9.54 K/mm3 (4.00-11.30)
[2020-05-26 05:32] LABS: Alanine Aminotransfer (ALT/SGP 19 U/L (12-78); Albumin, Blood 2.6 g/dL (3.4-5.0); Albumin/Globulin Ratio 0.8 (0.8-1.8); Alk Phos 64 U/L (50-136); Anion Gap 6 mmol/L (6-16); Aspartate Aminotrans (AST/SGOT 21 U/L (12-37); Bilirubin, Total 0.5 mg/dL (0.1-1.0); Blood Urea Nitrogen 27 mg/dL (8-24); CO2, Blood 25 mmol/L (21-32); Chloride, Blood 109 mmol/L (98-108); Creatinine, Blood 0.93 mg/dL (0.40-1.00); Globulin, Blood 3.2 g/dL (2.2-4.0); Glomerular Filtration Rate >60 (60-); Glucose, Blood 106 mg/dL (70-99); Potassium, Blood 3.5 mmol/L (3.5-5.5); Sodium, Blood 140 mmol/L (136-145); Total Protein, Blood 5.8 g/dL (6.4-8.2)
--- NOTE | 2020-05-26 11:28 | NUR ---
IV REMOVED FROM LFA R/T LEAKING.
--- NOTE | 2020-05-26 13:30 | NUR ---
Patient is sitting on a chair and alert. Patient immediately tells me about her medical history going back to and the many health trials that she has had to overcome, she tells me about the astrangement from her family and about her [employer] violet background. She explains that her difficulties have made her violet stronger and that her entire family has pulled away from the violet. She also shares about her horrible experiences with the health care facilities in [place]. She tells me that she has been in health care for 20yrs and feels like she continually gets care less then she provided to others. I provide therapeutic listening and prayer. Patient responds well and shows signs of reduced stress. I will continue to remain available.
[2020-05-26 15:46] LABS: Influenza A, PCR NEGATIVE (NEGATIVE); Influenza B, PCR NEGATIVE (NEGATIVE); Resp Syncytial Virus, PCR NEGATIVE (NEGATIVE); SARS-Cov-2 (COVID-19) PCR, MMC NEGATIVE (NEGATIVE)
--- NOTE | 2020-05-26 16:26 | NUR ---
SHIFT SUMMARY PT IS POD#2 FROM R GAMMA NAILING WITH DR. COBURN. PT IS PAINFUL WITH MOVEMENT BUT HAS DECLINED THE NEED FOR PAIN MEDICATION. PT ALSO DECLINED HER ASPIRIN, DR. OROZCO NOTIFIED. PT IS A 1 PERSON ASSIST WITH GAIT BELT AND WALKER FOR TRANSFERS. PLAN FOR DC TO [facility] THIS EVENING.
--- NOTE | 2020-05-26 17:56 | NUR ---
DISCHARGE REPORT CALLED TO JOSE AT [facility] PRIOR TO DISCHARGE. DISCHARGE PACKET, DRESSINGS AND SCRIPT SENT WITH PATIENT. PT LEFT VIA [facility] TRANSPORT TO [facility].
== END 2020-05-26 18:02 | DRG 481 ==
LOC: ER 13:50 → MEDS 20:29 → ERHOLD 20:29 → SURS 20:29 → MEDS 21:52 → SURS 05-24 11:55
PROVIDERS: Emergency Medicine; Orthopaedic Surgery; ADMIT Internal Medicine
PROC: 0QS636Z Reposition Right Upper Femur with Intramedullary Internal Fixation Device, Percutaneous Approach (ICD-10-PCS; principal; 2020-05-24 12:00)
DX: S72.144A Nondisplaced intertrochanteric fracture of right femur, initial encounter for closed fracture (principal); I50.22 Chronic systolic (congestive) heart failure; Z20.822 Contact with and (suspected) exposure to COVID-19; I25.10 Atherosclerotic heart disease of native coronary artery without angina pectoris; J44.9 Chronic obstructive pulmonary disease, unspecified; E11.65 Type 2 diabetes mellitus with hyperglycemia; I11.0 Hypertensive heart disease with heart failure; I51.3 Intracardiac thrombosis, not elsewhere classified; I25.2 Old myocardial infarction; Z86.73 Personal history of transient ischemic attack (TIA), and cerebral infarction without residual deficits; Z90.710 Acquired absence of both cervix and uterus; Z98.890 Other specified postprocedural states; Z88.0 Allergy status to penicillin; Z88.1 Allergy status to other antibiotic agents; Z88.2 Allergy status to sulfonamides; Z88.5 Allergy status to narcotic agent; Z88.8 Allergy status to other drugs, medicaments and biological substances; W18.39XA Other fall on same level, initial encounter; Y92.009 Unspecified place in unspecified non-institutional (private) residence as the place of occurrence of the external cause
CPT/HCPCS: 0241U; 36415; 70450; 71045; 72070; 72100; 72125; 73502; 73552; 73560-RT; 77066; 80053; 82947; 83735; 85025; 85027; 85610; 86850; 86900; 86901; 93005; 93010; 96374; 96375; 97110; 97116; 97162; 97166; 97530; 99285-25; A9270; C1713; C1769; G0279; J0690; J1100; J1815; J2370; J2405; J2704; J2710; J2765; J3010; J7030; J7120

== ENCOUNTER → 2020-12-11 | Outpatient (CLI) | payer OTHER ==
[2020-12-11 19:22] LABS: BASOPHILS ABSOLUTE AUTO 0.02 K/mm3 (0.00-0.23); BASOPHILS PERCENT AUTO 0 % (0-2); EOSINOPHILS ABSOLUTE AUTO 0.27 K/mm3 (0.00-0.68); EOSINOPHILS PERCENT AUTO 3 % (0-6); Hematocrit 39.1 % (33.0-51.0); Hemoglobin 12.8 g/dL (11.5-16.0); IMMATURE GRAN ABSOLUTE AUTO 0.02 K/mm3 (0.00-0.10); IMMATURE GRAN PERCENT AUTO 0 % (0-1); LYMPHOCYTES ABSOLUTE AUTO 2.46 K/mm3 (0.84-5.20); LYMPHOCYTES PERCENT AUTO 31 % (21-46); MONOCYTES ABSOLUTE AUTO 0.68 K/mm3 (0.16-1.47); MONOCYTES PERCENT AUTO 9 % (4-13); Mean Corpuscular HGB 30.6 pg (26.0-34.0); Mean Corpuscular HGB Conc 32.7 g/dL (31.5-36.5); Mean Corpuscular Volume 94 fL (80-100); NEUTROPHILS ABSOLUTE AUTO 4.42 K/mm3 (1.96-9.15); NEUTROPHILS PERCENT AUTO 56 % (41-73); Platelet Count 146 K/mm3 (150-400); RDW Coefficient Variation 13.6 % (11.7-14.2); RDW Standard Deviation 46.5 fL (35.1-46.3); Red Blood Cell Count 4.18 M/mm3 (3.80-5.20); White Blood Cell Count 7.87 K/mm3 (4.00-11.30)
[2020-12-11 19:38] LABS: Albumin, Blood 3.5 g/dL (3.4-5.0); Albumin/Globulin Ratio 0.9 (0.8-1.8); Bilirubin, Total 0.3 mg/dL (0.1-1.0); Bun/Creatinine Ratio 36.6 (12.0-20.0); Calcium, Blood 9.1 mg/dL (8.5-10.1); Creatinine, Blood 0.93 mg/dL (0.40-1.00); Globulin, Blood 4.1 g/dL (2.2-4.0); Potassium, Blood 4.9 mmol/L (3.5-5.5); Thyroid Stimulating Hormone 0.822 uIU/mL (0.360-4.800); Total Protein, Blood 7.6 g/dL (6.4-8.2)
== END | disposition home or self-care (01) ==
LOC: LAB SHORT 17:49
PROVIDERS: Nurse Practitioner Family
DX: E11.42 Type 2 diabetes mellitus with diabetic polyneuropathy (principal); E11.65 Type 2 diabetes mellitus with hyperglycemia; I10 Essential (primary) hypertension
CPT/HCPCS: 80053; 84443; 85025

== ENCOUNTER → 2021-07-14 | Outpatient (CLI) | payer OTHER ==
[2021-07-15 19:28] LABS: Creatinine, Urine Random 47.2 mg/dL (27.00-270.00); Microalb/Creat Ratio UR, Rand 663.136 mg/g (0.000-30.000)
== END | disposition home or self-care (01) ==
LOC: LAB SHORT 21:30 → EDSTATUS 05-22 13:15 → LAB FUT 05-22 13:15
PROVIDERS: Internal Medicine Endocrinology, Diabetes & Metabolism
DX: E11.65 Type 2 diabetes mellitus with hyperglycemia (principal)
CPT/HCPCS: 82043; 82570

== ENCOUNTER 2022-07-30 22:59 | Inpatient (IN) | payer OTHER ==
[~2022-07-30] VITALS: Ht 175.3 cm; Wt 51.0 kg
[2022-07-30 23:38] LABS: BASOPHILS ABSOLUTE AUTO 0.05 K/mm3 (0.00-0.23); BASOPHILS PERCENT AUTO 1 % (0-2); EOSINOPHILS ABSOLUTE AUTO 0.09 K/mm3 (0.00-0.68); EOSINOPHILS PERCENT AUTO 1 % (0-6); Hematocrit 46.6 % (33.0-51.0); Hemoglobin 15.2 g/dL (11.5-16.0); IMMATURE GRAN ABSOLUTE AUTO 0.06 K/mm3 (0.00-0.10); IMMATURE GRAN PERCENT AUTO 1 % (0-1); LYMPHOCYTES ABSOLUTE AUTO 1.87 K/mm3 (0.84-5.20); LYMPHOCYTES PERCENT AUTO 18 % (21-46); MONOCYTES ABSOLUTE AUTO 0.68 K/mm3 (0.16-1.47); MONOCYTES PERCENT AUTO 6 % (4-13); Mean Corpuscular HGB 29.5 pg (26.0-34.0); Mean Corpuscular HGB Conc 32.6 g/dL (31.5-36.5); Mean Corpuscular Volume 91 fL (80-100); Mean Platelet Volume 10.2 fL (9.1-12.4); NEUTROPHILS ABSOLUTE AUTO 7.91 K/mm3 (1.96-9.15); NEUTROPHILS PERCENT AUTO 74 % (41-73); Platelet Count 189 K/mm3 (150-400); RDW Coefficient Variation 12.1 % (11.7-14.2); Red Blood Cell Count 5.15 M/mm3 (3.80-5.20); White Blood Cell Count 10.66 K/mm3 (4.00-11.30)
[2022-07-31 00:02] LABS: Albumin, Blood 3.3 g/dL (3.4-5.0); Albumin/Globulin Ratio 0.8 (0.8-1.8); Bilirubin, Total 0.5 mg/dL (0.1-1.0); Calcium, Blood 9.3 mg/dL (8.5-10.1); Creatinine, Blood 1.42 mg/dL (0.40-1.00); Globulin, Blood 4.4 g/dL (2.2-4.0); Potassium, Blood 3.9 mmol/L (3.5-5.5); Total Protein, Blood 7.7 g/dL (6.4-8.2)
[2022-07-31 00:24] LABS: Source, Urine Straight Cath
[2022-07-31 00:26] LABS: Bilirubin, Urine Neg (Neg); Blood, Urine 3+ (Neg); Glucose Qualitative, Urine 4+ (Neg); Ketones, Urine 3+ (Neg); Leukocyte Esterase, Urine 3+ (Neg); Nitrite, Urine Neg (Neg); Protein, Urine 3+ (Neg); Urobilinogen, Urine NORM (Normal)
[2022-07-31 00:42] LABS: Appearance, Urine Hazy (Clear); Color, Urine Pale Yellow (P-Yellow)
[2022-07-31 00:43] LABS: Bacteria Many /hpf; Red Blood Cells, Urine 0-2 /hpf (0-2); Squamous Epithelial Cells Not Seen /hpf (Few); White Blood Cells, Urine TNTC /hpf (0-5); Yeast/Fungi Urine Many /hpf
[2022-07-31 04:10] LABS: Anti-Xa UFH, PHA Monitoring <0.10 IU/mL; International Normalized Ratio 1.02; Prothrombin Time Results 10.7 Sec (9.7-11.5)
[2022-07-31 05:02] VITALS: BP 152/88
[2022-07-31 05:29] LABS: BASOPHILS ABSOLUTE AUTO 0.04 K/mm3 (0.00-0.23); BASOPHILS PERCENT AUTO 0 % (0-2); EOSINOPHILS ABSOLUTE AUTO 0.01 K/mm3 (0.00-0.68); EOSINOPHILS PERCENT AUTO 0 % (0-6); Hematocrit 39.7 % (33.0-51.0); Hemoglobin 13.2 g/dL (11.5-16.0); IMMATURE GRAN ABSOLUTE AUTO 0.05 K/mm3 (0.00-0.10); IMMATURE GRAN PERCENT AUTO 1 % (0-1); LYMPHOCYTES ABSOLUTE AUTO 1.29 K/mm3 (0.84-5.20); LYMPHOCYTES PERCENT AUTO 12 % (21-46); MONOCYTES ABSOLUTE AUTO 0.57 K/mm3 (0.16-1.47); MONOCYTES PERCENT AUTO 5 % (4-13); Mean Corpuscular HGB 29.3 pg (26.0-34.0); Mean Corpuscular HGB Conc 33.2 g/dL (31.5-36.5); Mean Corpuscular Volume 88 fL (80-100); NEUTROPHILS ABSOLUTE AUTO 8.77 K/mm3 (1.96-9.15); NEUTROPHILS PERCENT AUTO 82 % (41-73); Platelet Count 165 K/mm3 (150-400); RDW Coefficient Variation 12.2 % (11.7-14.2); RDW Standard Deviation 39.8 fL (35.1-46.3); White Blood Cell Count 10.73 K/mm3 (4.00-11.30)
[2022-07-31 06:07] LABS: Alanine Aminotransfer (ALT/SGP 16 U/L (12-78); Albumin, Blood 2.8 g/dL (3.4-5.0); Albumin/Globulin Ratio 0.7 (0.8-1.8); Alk Phos 93 U/L (50-136); Anion Gap 11 mmol/L (6-16); Aspartate Aminotrans (AST/SGOT 17 U/L (12-37); Bilirubin, Total 0.5 mg/dL (0.1-1.0); Blood Urea Nitrogen 24 mg/dL (8-24); Bun/Creatinine Ratio 19.5 (12.0-20.0); CHOL/HDL RATIO 4.3; CO2, Blood 23 mmol/L (21-32); Calcium, Blood 8.8 mg/dL (8.5-10.1); Chloride, Blood 105 mmol/L (98-108); Cholesterol 160 mg/dL (50-200); Creatinine, Blood 1.23 mg/dL (0.40-1.00); Glomerular Filtration Rate 44 (60-); Glucose, Blood 410 mg/dL (70-99); HDL Cholesterol 37 mg/dL (>39); LDL/HDL RATIO 2.6; Low Density Lipoprotein Chol 95 mg/dL (0-110); Potassium, Blood 4.4 mmol/L (3.5-5.5); Sodium, Blood 139 mmol/L (136-145); Thyroid Stimulating Hormone 0.753 uIU/mL (0.360-4.800); Total Protein, Blood 6.8 g/dL (6.4-8.2); Triglycerides 138 mg/dL (30-160); Very Low Density Lipoprot Chol 27 mg/dL (6-32)
--- NOTE | 2022-07-31 06:45 | NUR ---
TROPONIN CR TROPONIN NOTED TO BE TRENDING UP FROM 112 TO 314. THIS NURSE SPOKE W/ YARN REWINDER JOLYNN PATTON REGARDING CRITICAL RESULT. CALL NOT PLACED TO DOCTOR DUE TO UPDATED CALL LIST BEING UNAVAILABLE. WILL PASS ON RESULT TO ONCOMING RN.
--- NOTE | 2022-07-31 06:48 | NUR ---
ADMISSION/SHIFT SUMMARY PT ARRIVED TO PCU APPROX. 0440. SHE WAS TREMULOUS AND VOMITTING UPON ARRIVAL. SHE WAS ALERT TO SELF, DATE, SITUATION BUT REPORTED BELIEVING SHE WAS AT [facility] HOWEVER SHE KNEW SHE WAS IN [place]. SHE HAS BEEN ABLE TO MAKE HER NEEDS KNOWN. HER GOWN WAS SOAKING WET UPON ARRIVAL, NEW GOWN PROVIDED/PLACED BY THIS RN. SPO2 MAINTAINED >95% VIA ROOM AIR, BP AND HR STABLE, SHE DENIED FEELING CHEST PAIN/PRESSURE WELL FEELING SOB BUT WAS ACTIVELY VOMITTING, PLEASE SEE EMAR FOR NAUSEA MANAGEMENT. PT IS NPO AT THIS TIME. SHE REPORTED FEELING EXTREMELY WEAK AND WAS TRANSFERRED VIA SLIDER. MOVEMENT APPEARS TO INCREASE NAUSEA. BLOOD GLUCOSE NOTED TO BE ELEVATED, 10 UNITS OF INSULIN GIVEN PER EMAR ORDERS. LR AND HEPARIN STARTED PER EMAR ORDERS BUT IV IN LEFT AC BECAME KINKED AND WAS NO LONGER PATENT. FRAME BUILDER MERLIN NOW AT PT BEDSIDE PLACING POWERGLIDE. WILL REPORT TO ONCOMING RN. ATTEMPTING TO PLACE POWERGLIDE. PT REPORTED PAIN IN R HIP DUE TO HX OF HIP FRACTURE.
[2022-07-31 07:22] VITALS: BP 105/85
[2022-07-31 11:25] VITALS: BP 121/72
--- NOTE | 2022-07-31 13:33 | NUR ---
Met with pt at her bedside; she is alert and oriented. She is able to make her needs and wants known. She states she is legally blind, but her hearing is good. She currently rents a room from her landlord, but states this is no longer a workable arrangement, as the landlord is "physically worse off than me", she states. She reports feeling nauseated earlier today, but states it subsided, and she is hungry. Dr. Rodriguez ok with advancing ADA diet as tolerated. Pt did make it clear she would not want any invasive procedures, and to her these include stent placement, or other cardiac interventions other than medication and IV's. She stated if her heart stopped, she wouldn't want to be revived. I made sure I understood clearly what her wishes are, and she again states she doesn't want to do any of that. Left message for Reina Sellers, Safety Coordinator about pt's need for housing. Pt is unable to lay flat, which rules out many of the tests they had been planning. Pt states that's "Just fine" with her. AURELIO filled out with pt, awaiting 's signature.
[2022-07-31 16:42] VITALS: BP 133/66
--- NOTE | 2022-07-31 16:52 | NUR ---
SHIFT SUMMARY This RN assumed care at 0700. vital signs stable and have remained stable throughout this Rns shift. tele sr 80s. patient is alert and oriented x4. patieint is able to make needs known, and uses call light appropriately. patient reports no pain, chest pain/pressure, or shortness of breath. see shift assesment for further detials. patient has been nausea and having epsidoes of emesis, that is clear with green tinge, throughout the day. patient is unable to lay flat, and stated "laying flat causes her to throw up and become nauseous". due to patient being unable to lay flat stress test was cancelled, and other imaging that requires patient to lay flat were cancelled. MD Lisa and team notifed. an abd of the ultrasound was order. patient had trending troponins throughout this rns shift. MD Lisa went in and discussed options with patient, patient wanted to medical manage and nothing inassive. Shi, from palliative care in to see patient and went over a POLST, DNR status, see polst. Plan is to continue to manage patient episodes of nausea and vomiting, advnace diet as tolerated, and herparin infusing at 15u/kg/hr. plan is up to date. call light is within reach and bed is in lowest position.
[2022-07-31 21:52] VITALS: BP 131/81
[2022-07-31 23:13] VITALS: BP 122/79
--- NOTE | 2022-08-01 04:00 | NUR ---
ASSUMED CARE PATIENT A&O X2. HEPARIN INFUSING. HAVING CLEAR EMESIS. INCONITNENT OF URINE.
[2022-08-01 04:03] LABS: BASOPHILS ABSOLUTE AUTO 0.04 K/mm3 (0.00-0.23); BASOPHILS PERCENT AUTO 1 % (0-2); EOSINOPHILS PERCENT AUTO 3 % (0-6); Hematocrit 35.2 % (33.0-51.0); Hemoglobin 11.9 g/dL (11.5-16.0); IMMATURE GRAN ABSOLUTE AUTO 0.03 K/mm3 (0.00-0.10); IMMATURE GRAN PERCENT AUTO 0 % (0-1); LYMPHOCYTES ABSOLUTE AUTO 2.62 K/mm3 (0.84-5.20); LYMPHOCYTES PERCENT AUTO 33 % (21-46); MONOCYTES ABSOLUTE AUTO 0.71 K/mm3 (0.16-1.47); MONOCYTES PERCENT AUTO 9 % (4-13); Mean Corpuscular HGB 30.1 pg (26.0-34.0); Mean Corpuscular HGB Conc 33.8 g/dL (31.5-36.5); Mean Corpuscular Volume 89 fL (80-100); Mean Platelet Volume 10.8 fL (9.1-12.4); NEUTROPHILS ABSOLUTE AUTO 4.47 K/mm3 (1.96-9.15); NEUTROPHILS PERCENT AUTO 55 % (41-73); Platelet Count 131 K/mm3 (150-400); RDW Coefficient Variation 12.6 % (11.7-14.2); RDW Standard Deviation 41.1 fL (35.1-46.3); Red Blood Cell Count 3.96 M/mm3 (3.80-5.20); White Blood Cell Count 8.07 K/mm3 (4.00-11.30)
[2022-08-01 04:53] VITALS: BP 131/73
[2022-08-01 06:38] LABS: Bun/Creatinine Ratio 14.2 (12.0-20.0); Calcium, Blood 8.6 mg/dL (8.5-10.1); Creatinine, Blood 1.41 mg/dL (0.40-1.00); Potassium, Blood 3.7 mmol/L (3.5-5.5)
[2022-08-01 08:13] VITALS: BP 143/72
--- NOTE | 2022-08-01 10:43 | NUR ---
CARE ASSUMPTION This RN assumed care at 0700. vital signs stable. tele sr 84. patient is alert and oriented x4. perrla. uses call light approriately to make needs known. see shift assessment for further detials. patient reports no pain, chest pain/pressure, and only shortness of breath with exertion. patient reports minimal nausea this am. MD Liz in to see patient this and discussed plan of care. patient made medical status without tele. patient is to be started on oral plavix, and heparin will be stopped after 48 hours. patient is to be started on and veritgo medication to see if this helps with patient motion sickenss when moving. see maria ines and cortez. plan is for patient to be discharged tomorrow.
[2022-08-01 11:15] VITALS: BP 146/73
[2022-08-01 15:11] VITALS: BP 125/51
--- NOTE | 2022-08-01 17:46 | NUR ---
SHIFT SUMMARY patient neuro remains unchaged. vital signs remain stable. patient reports no pain, chest pain/pressure or shortness of breath. patient is a one person assist to the bathroom with a walker and gait belt. patient uses call light approrpiately. no acute changes this shift. plan of care remains up to date.
[2022-08-01 19:20] VITALS: BP 139/74
[2022-08-02 05:36] LABS: Bun/Creatinine Ratio 14.9 (12.0-20.0); Calcium, Blood 8.5 mg/dL (8.5-10.1); Creatinine, Blood 1.21 mg/dL (0.40-1.00); Potassium, Blood 3.8 mmol/L (3.5-5.5)
[2022-08-02 05:45] VITALS: BP 164/90
--- NOTE | 2022-08-02 05:47 | NUR ---
SHIFT SUMMARY A/O 2-3, 1P ASSIST WITH FWW AND GB. GENERALIZED WEAKNESS. SPO2 >92% ON RA. DENIES CHEST PAIN/PRESSURE. HEPARIN GTT INFUSING. VSS, NO ACUTE CHANGES AT THIS TIME. BED IN LOWEST POSITION WITH CALL LIGHT IN REACH. WILL CONTINUE TO MONITOR AND REPORT TO ONCOMING RN.
[2022-08-02 07:26] VITALS: BP 159/67
[2022-08-02 15:54] VITALS: BP 133/70
--- NOTE | 2022-08-02 17:42 | NUR ---
SHIFT SUMMARY; ASSUMED CARE AT 0700. A/A/OX4 DURING SHIFT. SBA TO BATHROOM WITH FRONT WHEEL WALKER, WORKED WTIH PT/OT. AWAITING SNIF PLACEMENT. COOPERATIVE WITH CARE. BLOOD SUGAR INCREASED T/O DAY, TELEPHONE CALL TO DR. Long. VERBAL ORDER GIVEN TO ORDER NIGHTTIME DOSE OF 30UNITS GLARGINE SC. ORDER PLACED IN [employer]. S/S COVERAGE PER EMAR. NO ACUTE CHANES DURING SHIFT. WILL CONTINUE TO MONITOR AND TREAT UNTIL CHANGE OF SHIFT.
[2022-08-02 19:13] VITALS: BP 128/59
--- NOTE | 2022-08-02 20:55 | NUR ---
called dr. ocasio about pt's cbg of 398. since long acting insulin was started dr. ocasio wanted to do a cbg recheck at 0000. insulin glargine 20units and per med sliding scale insilin lispro 5units administered at about 2000.
[2022-08-03 00:45] LABS: Bun/Creatinine Ratio 17.6 (12.0-20.0); Calcium, Blood 8.6 mg/dL (8.5-10.1); Creatinine, Blood 1.25 mg/dL (0.40-1.00); Potassium, Blood 4.4 mmol/L (3.5-5.5)
--- NOTE | 2022-08-03 01:26 | NUR ---
PT TRANSFERED TO U 08 ROOM MITIGATED, 1:1 SITTER PRESENT, BATHROOM LOCKED. SETTLED PT IN THE ROOM AND SHE WAS PRETTY OBTUNDED AND BARLEY ANSWERING QUESTIONS. SHE WAS CHANGED INTO A PAPER SCRUB TOP AND PAPO ABLE TO ASSIST WITH CHANGING. HER HERCULES CATH WAS D/C'D PER PROTOCOL, PT EDUCATED AND TOLD TO LET STAFF KNOWN WHEN SHE NEEDS TO USE THE BED JENKINS. PT IS ON 4L NC ANS SP02 >90%. WHEN ASKED IF SHE WAS FEELING SUICIDAL, THE PT SAID "NO". SHE IS VERY WITHDRAWN AND GIVING SHORT ANSERS WHEN SHE CHOOSES TO TALK. WE CHECKED HER CBG PER MD ORDERS AND HER GLUCOSE WAS 70. WILL CHECK IN AN HOUR SINCE IT IS TRENDING DOWN.
--- NOTE | 2022-08-03 01:52 | NUR ---
NEAR SYNCOPE EPISODE AT ABOUT 0030 PT WAS GETTING UP TO THE BATHROOM W/ 1P ASSIST, FWW, AND GAIT BELT. PT WAS GETTING UP FROM THE TOILET AND BEGAN TO GET LIGHT HEADED AND DIZZY. WHEN ASKED IF SHE FEELS LIKE SHE IS GOING TO FIANT SHE STATED THAT SHE WAS. SHE STARTED TO CLOSE HER EYES AND WAS I ASSISTED HER BACK TO THE TOILET AN DHAD THE PT KEEP TALKING TO ME. STEFANIE VASQUEZ RN WAS CALLED AND BROUGHT IN A VITAL TOWER. CINDY LAUREN THAN CAME IN WITH A WHEELCHAIR. VS STABLE, BUT HYPERTENSIVE. W/ 3P ASSIST WE GOT THE PT BACK TO BED. PT STATED SHE WAS SOB AND PLACED ON 2L FOR COMFORT. PT BEGAN TO GET NAUSEATED AND WAS GIVEN 5MG OF REGLAN. AN EKG AND REPEAT TROPONIN WERE OBTAINED. TROPONIN CAME BACK AT 161. HER BLOOD SUGAR DROPPED FROM 398 TO 230 AFTER HS INSULINS WERE GIVEN. PT NOW RESTING IN BED. SEE NOTES FOR ANY UPDATES.
[2022-08-03 04:52] VITALS: BP 141/66
--- NOTE | 2022-08-03 06:03 | NUR ---
SHIFT SUMMARY PT IS A&OX4, WAS MADE BEDREST AFTER HER NEAR SYNCOPAL EPISODE. SEE PREVIOUS NOTE FOR MORE INFORMATION. SHE CAN BE FORGETFUL AT TIMES SO A BED ALARM HAS BEEN PLACED ON HER. SHE IS NOW ON 2L NC FOR COMFORT AND SATURATES >95% ON ROOM AIR. ON TELE SHE HAS BEEN SR W/O ? ANGINA AND CHEST PRESSURE. SHE WAS NAUSEATED ONCE AND GIVEN 5MG OF REGLAN, SEE PREVIOUS NOTE FOR MORE INFORMATION. BED IS IN LOW, AND CALL LIGHT IS IN REACH.
[2022-08-03 07:26] VITALS: BP 144/67
[2022-08-03 08:43] LABS: CPK Creatine Kinase 49 U/L (26-193)
[2022-08-03 11:45] VITALS: BP 146/83
[2022-08-03 15:40] VITALS: BP 172/72
--- NOTE | 2022-08-03 17:48 | NUR ---
SHIFT SUMMARY; ASSUMED CARE AT 0700. A/A/OX4 DURING SHIFT WITH INTERMITANT FORGETFULNESS IN AFTERNOON. UP IN CHAIR FOR MEALS, AMBULATES TO RESTROOM WITH FWW AND SBA. USES CALL LIGHT AND MAKES NEEDS KNOWN. INSULIN COVERAGE PER EMAR. NO ACUTE MEDICAL CHANGES DURING SHIFT. WILL CONTINUE TO MONITOR AND TREAT UNTIL CHANGE OF SHIFT.
[2022-08-03 19:29] VITALS: BP 161/63
--- NOTE | 2022-08-04 00:34 | NUR ---
CALLED DR. BARBER DUE TO INSULIN LEVELS TRENDING UP POST INSULIN ADMINISTRATION PT'S BLOOD SUGAR WAS 368 AND HER HS DOSING OF INSULIN INCLUDED 20 UNITS OF GLARGINE AND [address] BARBER WANTED TO RECHECK HER INSULIN AT 0000 AND IT CAME BACK AT 369. I CALLED DR. BARBER AND HE ADDED 5UNITS OF GLARGINE AND WANTS A RECHECK AT 0200. SEE NOTES FOR MORE INFO.
[2022-08-04 03:50] VITALS: BP 148/76
[2022-08-04 04:49] LABS: Bun/Creatinine Ratio 21.1 (12.0-20.0); Calcium, Blood 8.5 mg/dL (8.5-10.1); Creatinine, Blood 1.23 mg/dL (0.40-1.00); Potassium, Blood 3.9 mmol/L (3.5-5.5)
--- NOTE | 2022-08-04 06:42 | NUR ---
Shift Summary Pt is A&Ox4, but can be impulsive w/ getting out of bed w/o using her call button. She can make her needs known, and follows conversation appropriately. The pt is on RA and SpO2 >95%. She is in medical status w/ no tele and she denies any angina or chest pressure. She has been hyperglycemic this shift and has needed extra insulin, see previous note for details and provider orders. There have been no other acute events this shift. Her bed alarm is on, the bed is low, and the call light is in reach. See notes for any updates.
[2022-08-04 07:38] VITALS: BP 145/63
--- NOTE | 2022-08-04 11:34 | NUR ---
UPDATE [facility] UPDATED PER PT REQUEST REGARDING WHEELCHAIR, WALKER AND WHEELCHAIR PAD. [facility] TO BRING PT BELONGINGS PRIOR TO DC.
--- NOTE | 2022-08-04 13:08 | NUR ---
PT TRANSFER REPORT GIVEN TO ROOM 362 RN. PT TO ROOM 362 BY WHEELCHAIR WITH ALL BELONGINGS BY STAKEHOLDER MANAGER AND STAKEHOLDER MANAGER STUDENT.
[2022-08-04 13:32] VITALS: BP 168/91
--- NOTE | 2022-08-04 14:49 | NUR ---
LATE ENTRY PT TRANSFERED FROM PCU. ALERT AND ORIENTED X4. WEAK. STANDBY ASSIST ONCE UP FROM SITTING. GAIT BELT TO STAND. R/A. FORGETFUL.
[2022-08-04 15:50] VITALS: BP 136/60
--- NOTE | 2022-08-04 16:25 | NUR ---
PT DIAPHORETIC AND DROWSY. UNABLE TO HOLD HEAD UP DURING VITALS. CHECK BG CONCERNED THAT IT WAS LOW. BG 328. DR. YUN NOTIFIED. MD WILL COME TO BEDSIDE TO ASSESS.
--- NOTE | 2022-08-04 18:08 | NUR ---
LATE ENTRY DR YUN AND DR NUÑEZ AT BEDSIDE TO ASSESS PT. PER , OK TO TREAT BG BASED ON BG RESULT FROM 1600ISH FOR AC DINNER DOSE. IF PT BG LEVEL >400 MAKE PT NPO
[2022-08-04 20:21] VITALS: BP 148/56
--- NOTE | 2022-08-04 21:40 | NUR ---
CBG >400 RASHEED GATES, NOTIFIED. NO NEW ORDERS AT THIS TIME. REFER TO EMAR FOR INSULIN ADMINISTRATION. PATIENT DENIES SYMPTOMS AT THIS TIME.
--- NOTE | 2022-08-05 03:34 | NUR ---
COMMODITY SUPERVISOR SUMMARY NO ACUTE EVENTS THIS SHIFT. A&OX4. PATIENT EFFECTIVELY COMMUNICATES NEEDS. VSS. RR EVEN AND UNLABORED ON RA. SPO2 >92%. HS CBG 410; RASHEED GATES, NOTIFIED OF THIS AND INSULIN ADMINISTERED PER EMAR. PATIENT NOTED TO SLEEP WELL THROUGHOUT THE NIGHT WITHOUT ANY ACUTE CONCERNS. BED LOW AND LOCKED. BED ALARM ON FOR SAFETY DUE TO HISTORY OF IMPULSIVENESS. CALL LIGHT WITHIN REACH. THIS RN WILL CONTINUE TO MONITOR.
[2022-08-05 04:20] VITALS: BP 170/91
--- NOTE | 2022-08-05 07:30 | NUR ---
ASSUMED CARE: PT RESTING QUIETLY AT THIS TIME. DENIES CHEST PAIN. NO FURTHER NEEDS OR CONCERNS AT PRESENT
[2022-08-05 08:25] VITALS: BP 137/100
--- NOTE | 2022-08-05 11:12 | NUR ---
PHYSICAL THERAPY WORKING WITH PT AT THIS TIME
[2022-08-05] MEDS ORDERED: ATOR40TA PO (13:59)
[2022-08-05] MEDS ORDERED: CLOP75 PO (13:59)
[2022-08-05] MEDS ORDERED: METO25ER PO (14:00)
[2022-08-05] MEDS ORDERED: BASAGLAR K100 UNIT/1 SC (14:02)
[2022-08-05] MEDS ORDERED: HUMALOG KW100 UNIT/1 SC (14:04)
[2022-08-05 14:50] VITALS: BP 171/61
[2022-08-05 14:52] VITALS: BP 173/68
[2022-08-05 15:25] LABS: Influenza A, PCR NEGATIVE (NEGATIVE); Influenza B, PCR NEGATIVE (NEGATIVE); Resp Syncytial Virus, PCR NEGATIVE (NEGATIVE); SARS-Cov-2 (COVID-19) PCR, MMC NEGATIVE (NEGATIVE)
--- NOTE | 2022-08-05 16:12 | NUR ---
DISCHARGE: PT'S PG DISCONTINUED. PT TRANSFERRED TO WHEELCHAIR AND ESCORTED OUT VIA PHYSICIAN AIDE. BELONGINGS WITH PT INCLUDING HEMIWALKER. REPORT GIVEN TO CECILLE AT [facility]. DENY FURTHER NEEDS OR CONCERNS
== END 2022-08-05 16:06 | DRG 690 ==
LOC: ER 22:59 → PCU 23:00 → MEDS 08-04 14:46
PROVIDERS: Emergency Medicine; Family Medicine; Family Medicine Adult Medicine; Hospitalist; Internal Medicine; ADMIT Internal Medicine
DX: N39.0 Urinary tract infection, site not specified (principal); N17.9 Acute kidney failure, unspecified; Z66 Do not resuscitate; Z20.822 Contact with and (suspected) exposure to COVID-19; E11.65 Type 2 diabetes mellitus with hyperglycemia; Z91.148 Patient's other noncompliance with medication regimen for other reason; I12.9 Hypertensive chronic kidney disease with stage 1 through stage 4 chronic kidney disease, or unspecified chronic kidney disease; N18.9 Chronic kidney disease, unspecified; E11.22 Type 2 diabetes mellitus with diabetic chronic kidney disease; R77.8 Other specified abnormalities of plasma proteins; I25.10 Atherosclerotic heart disease of native coronary artery without angina pectoris; J44.9 Chronic obstructive pulmonary disease, unspecified; Z86.73 Personal history of transient ischemic attack (TIA), and cerebral infarction without residual deficits; Z90.710 Acquired absence of both cervix and uterus; Z98.890 Other specified postprocedural states; Z88.1 Allergy status to other antibiotic agents; Z88.5 Allergy status to narcotic agent; Z88.6 Allergy status to analgesic agent; Z88.7 Allergy status to serum and vaccine; Z88.8 Allergy status to other drugs, medicaments and biological substances
CPT/HCPCS: 0241U; 36415; 71046; 76700; 80048; 80053; 80061; 81001; 82550; 82947; 83036; 83605; 83690; 84443; 84484; 85025; 85520; 85610; 85730; 87040; 87086; 87106; 93005; 93010; 93306; 94760; 96361; 96365; 96375; 96376; 97110; 97116; 97162; 97166; 97530; 97535; 99285-25; A9270; C1751; G0378; J0280; J1644; J1815; J1956; J2405; J2765; J2785; J7030; J7120; P9612

== ENCOUNTER 2022-12-19 16:52 | Emergency (ER) | payer OTHER ==
[~2022-12-19] VITALS: Ht 154.9 cm; Wt 52.2 kg
[~2022-12-19 16:52] MED LIST changes: +ATOR40TA PO; +BASAGLAR K100 UNIT/1 SC; +CLOP75 PO; +HUMALOG KW100 UNIT/1 SC; +METO25ER PO
[2022-12-19 17:19] LABS: BASOPHILS ABSOLUTE AUTO 0.05 K/mm3 (0.00-0.23); BASOPHILS PERCENT AUTO 1 % (0-2); EOSINOPHILS ABSOLUTE AUTO 0.16 K/mm3 (0.00-0.68); EOSINOPHILS PERCENT AUTO 3 % (0-6); Hemoglobin 15.1 g/dL (11.5-16.0); IMMATURE GRAN ABSOLUTE AUTO 0.01 K/mm3 (0.00-0.10); IMMATURE GRAN PERCENT AUTO 0 % (0-1); LYMPHOCYTES ABSOLUTE AUTO 1.01 K/mm3 (0.84-5.20); LYMPHOCYTES PERCENT AUTO 19 % (21-46); MONOCYTES ABSOLUTE AUTO 0.58 K/mm3 (0.16-1.47); MONOCYTES PERCENT AUTO 11 % (4-13); Mean Corpuscular HGB 29.7 pg (26.0-34.0); Mean Corpuscular HGB Conc 31.5 g/dL (31.5-36.5); Mean Corpuscular Volume 95 fL (80-100); Mean Platelet Volume 10.2 fL (9.1-12.4); NEUTROPHILS ABSOLUTE AUTO 3.45 K/mm3 (1.96-9.15); NEUTROPHILS PERCENT AUTO 66 % (41-73); Platelet Count 157 K/mm3 (150-400); RDW Coefficient Variation 16.9 % (11.7-14.2); RDW Standard Deviation 58.5 fL (35.1-46.3); Red Blood Cell Count 5.08 M/mm3 (3.80-5.20); White Blood Cell Count 5.26 K/mm3 (4.00-11.30)
[2022-12-19] MEDS ORDERED: FUROSEMIDE20 MG PO (17:23)
[2022-12-19] MEDS ORDERED: ACTOS30 MG PO (17:25)
[2022-12-19 17:41] LABS: Albumin, Blood 3.1 g/dL (3.4-5.0); Albumin/Globulin Ratio 0.9 (0.8-1.8); Bilirubin, Total 0.7 mg/dL (0.1-1.0); Bun/Creatinine Ratio 25.4 (12.0-20.0); Calcium, Blood 9.2 mg/dL (8.5-10.1); Creatinine, Blood 1.22 mg/dL (0.40-1.00); Globulin, Blood 3.3 g/dL (2.2-4.0); Total Protein, Blood 6.4 g/dL (6.4-8.2)
[2022-12-19 19:44] LABS: Source, Urine Straight Cath
[2022-12-19 19:51] LABS: Bilirubin, Urine Neg (Neg); Blood, Urine 2+ (Neg); Glucose Qualitative, Urine Neg (Neg); Ketones, Urine Neg (Neg); Leukocyte Esterase, Urine 3+ (Neg); Nitrite, Urine Pos (Neg); Protein, Urine 3+ (Neg); Specific Gravity, Urine 1.025 (1.003-1.022); Urobilinogen, Urine NORM (Normal)
[2022-12-19 19:57] LABS: Appearance, Urine Hazy (Clear); Color, Urine Yellow (P-Yellow)
[2022-12-19 19:59] LABS: Bacteria Many /hpf; Red Blood Cells, Urine 0-2 /hpf (0-2); Squamous Epithelial Cells Not Seen /hpf (Few)
[2022-12-19 21:07] VITALS: BP 158/78
[2022-12-20] MEDS ORDERED: CEFP200 PO (00:26)
== END 2022-12-19 22:10 | disposition home or self-care (01) ==
LOC: ER 16:52
PROVIDERS: Emergency Medicine
DX: N39.0 Urinary tract infection, site not specified (principal); J44.9 Chronic obstructive pulmonary disease, unspecified; I25.2 Old myocardial infarction; I25.10 Atherosclerotic heart disease of native coronary artery without angina pectoris; E78.5 Hyperlipidemia, unspecified; E11.65 Type 2 diabetes mellitus with hyperglycemia; N28.9 Disorder of kidney and ureter, unspecified; I10 Essential (primary) hypertension; Z88.0 Allergy status to penicillin; Z88.7 Allergy status to serum and vaccine; Z88.8 Allergy status to other drugs, medicaments and biological substances; Z88.5 Allergy status to narcotic agent; Z88.1 Allergy status to other antibiotic agents; Z88.6 Allergy status to analgesic agent; Z79.899 Other long term (current) drug therapy; Z79.4 Long term (current) use of insulin; Z86.73 Personal history of transient ischemic attack (TIA), and cerebral infarction without residual deficits
CPT/HCPCS: 51701; 80053; 81001; 85025; 87077; 87086; 87186; 96365; 99285-25; J0696

== ENCOUNTER 2022-12-26 16:34 | Inpatient (IN) | payer OTHER ==
[~2022-12-26] VITALS: Ht 157.5 cm; Wt 58.4 kg
[~2022-12-26 16:34] MED LIST changes: +ACTOS30 MG PO; +CEFP200 PO; +FUROSEMIDE20 MG PO
[2022-12-26 17:19] LABS: BASOPHILS ABSOLUTE AUTO 0.05 K/mm3 (0.00-0.23); BASOPHILS PERCENT AUTO 1 % (0-2); EOSINOPHILS PERCENT AUTO 1 % (0-6); Hematocrit 48.7 % (33.0-51.0); IMMATURE GRAN ABSOLUTE AUTO 0.03 K/mm3 (0.00-0.10); IMMATURE GRAN PERCENT AUTO 0 % (0-1); LYMPHOCYTES ABSOLUTE AUTO 1.49 K/mm3 (0.84-5.20); LYMPHOCYTES PERCENT AUTO 17 % (21-46); MONOCYTES PERCENT AUTO 9 % (4-13); Mean Corpuscular HGB 29.6 pg (26.0-34.0); Mean Corpuscular HGB Conc 30.8 g/dL (31.5-36.5); Mean Corpuscular Volume 96 fL (80-100); Mean Platelet Volume 11.5 fL (9.1-12.4); NEUTROPHILS ABSOLUTE AUTO 6.46 K/mm3 (1.96-9.15); NEUTROPHILS PERCENT AUTO 72 % (41-73); Platelet Count 194 K/mm3 (150-400); RDW Coefficient Variation 16.8 % (11.7-14.2); Red Blood Cell Count 5.07 M/mm3 (3.80-5.20); White Blood Cell Count 8.93 K/mm3 (4.00-11.30)
[2022-12-26 17:24] LABS: Source, Urine Foley catheter
[2022-12-26 17:25] LABS: Calcium, Ionized (POC) 1.07 mmol/L (1.10-1.46); Chloride (POC) 112 mmol/L (98-108); Creatinine (POC) 1.3 mg/dL (0.6-1.0); Glucose (ISTAT POC) 227 mg/dL (70-99); Hemoglobin (POC) 16.7 g/dL (12.0-16.0); Potassium (POC) 6.4 mmol/L (3.5-5.5); Sodium (POC) 141 mmol/L (135-148); Total CO2 (POC) 23 mmol/L (21-32)
[2022-12-26 17:30] LABS: Appearance, Urine Hazy (Clear); Bilirubin, Urine Neg (Neg); Blood, Urine 4+ (Neg); Color, Urine Yellow (P-Yellow); Glucose Qualitative, Urine 2+ (Neg); Ketones, Urine Neg (Neg); Leukocyte Esterase, Urine Neg (Neg); Nitrite, Urine Neg (Neg); Protein, Urine 3+ (Neg); Urobilinogen, Urine NORM (Normal)
[2022-12-26 17:40] LABS: Amorphous Mod (0-Heavy); Bacteria Mod /hpf; Hyaline Casts 0-2 /lpf (0-2); Squamous Epithelial Cells Not Seen /hpf (Few); White Blood Cells, Urine 0-2 /hpf (0-5)
[2022-12-26 18:09] LABS: Influenza A, PCR NEGATIVE (NEGATIVE); Influenza B, PCR NEGATIVE (NEGATIVE); Resp Syncytial Virus, PCR NEGATIVE (NEGATIVE); SARS-Cov-2 (COVID-19) PCR, MMC NEGATIVE (NEGATIVE)
[2022-12-26 18:10] LABS: PCO2 Arterial 38.7 mmHg (35-45); PO2 Arterial 293 mmHg (80-100); pH Blood Arterial 7.34 (7.35-7.45)
[2022-12-26 20:00] LABS: Albumin, Blood 2.4 g/dL (3.4-5.0); Albumin/Globulin Ratio 0.6 (0.8-1.8); Bilirubin, Total 0.5 mg/dL (0.1-1.0); Calcium, Blood 8.3 mg/dL (8.5-10.1); Creatinine, Blood 1.18 mg/dL (0.40-1.00); Globulin, Blood 3.7 g/dL (2.2-4.0); Potassium, Blood 4.7 mmol/L (3.5-5.5); Total Protein, Blood 6.1 g/dL (6.4-8.2)
[2022-12-26 22:24] LABS: Bun/Creatinine Ratio 25.4 (12.0-20.0); Calcium, Blood 8.2 mg/dL (8.5-10.1); Creatinine, Blood 1.3 mg/dL (0.40-1.00); Potassium, Blood 4.8 mmol/L (3.5-5.5); Thyroid Stimulating Hormone 1.23 uIU/mL (0.360-4.800)
[2022-12-26 22:43] VITALS: BP 163/87
[2022-12-27 00:55] LABS: BASOPHILS ABSOLUTE AUTO 0.04 K/mm3 (0.00-0.23); BASOPHILS PERCENT AUTO 1 % (0-2); EOSINOPHILS ABSOLUTE AUTO 0.08 K/mm3 (0.00-0.68); EOSINOPHILS PERCENT AUTO 1 % (0-6); Hematocrit 46.2 % (33.0-51.0); Hemoglobin 14.4 g/dL (11.5-16.0); IMMATURE GRAN ABSOLUTE AUTO 0.03 K/mm3 (0.00-0.10); IMMATURE GRAN PERCENT AUTO 0 % (0-1); LYMPHOCYTES ABSOLUTE AUTO 1.06 K/mm3 (0.84-5.20); LYMPHOCYTES PERCENT AUTO 14 % (21-46); MONOCYTES ABSOLUTE AUTO 0.67 K/mm3 (0.16-1.47); MONOCYTES PERCENT AUTO 9 % (4-13); Mean Corpuscular HGB 29.3 pg (26.0-34.0); Mean Corpuscular HGB Conc 31.2 g/dL (31.5-36.5); Mean Corpuscular Volume 94 fL (80-100); Mean Platelet Volume 10.5 fL (9.1-12.4); NEUTROPHILS ABSOLUTE AUTO 5.77 K/mm3 (1.96-9.15); NEUTROPHILS PERCENT AUTO 75 % (41-73); Platelet Count 123 K/mm3 (150-400); RDW Coefficient Variation 16.7 % (11.7-14.2); RDW Standard Deviation 57.6 fL (35.1-46.3); Red Blood Cell Count 4.91 M/mm3 (3.80-5.20); White Blood Cell Count 7.65 K/mm3 (4.00-11.30)
[2022-12-27 01:11] LABS: Calcium, Blood 8.8 mg/dL (8.5-10.1); Creatinine, Blood 1.32 mg/dL (0.40-1.00); Magnesium, Blood 2.3 mg/dL (1.6-2.4); Potassium, Blood 5.1 mmol/L (3.5-5.5)
[2022-12-27 03:31] VITALS: BP 146/77
--- NOTE | 2022-12-27 04:05 | NUR ---
PATIENT CAME UP FROM ED AT 2230, RESPIRATORY FAILURE. ON 4 L NC, VISUALIZED LABORED/TACHYPNIC WHEN ALERT. A/O TO SELF ONLY, CAN ANSWER QUESTIONS APPROPRIATELY BUT IS CONFUSED. RESTLESS, KEEPS PULLING NASAL CANNULA OUT OF HER NOSE. ON CONTINUOUS PULSE OX. DESATS TO MID 70'S ON ROOM AIR. HAS SOME REDNESS/BRUISNG TO BACK AND LABIA. NO OPEN WOUNDS. FEET ARE RED, EDEMETOUS AND TENDER TO TOUCH BUT COOL TO TOUCH. EAR PROBE FOR PULSE OX DUE TO DUSKY NAILBEDS AND COOL HANDS. UTI, ON IV ANTIBIOTICS. INCONTINENT, BRIEF ON. NOT ABLE TO MAKE NEEDS KNOWN. BED ALARM ON, BED LOCKED IN LOW POSITION, NONSKID SOCKS ON. CALL LIGHT IN REACH.
[2022-12-27 08:06] VITALS: BP 136/83
[2022-12-27 16:00] VITALS: BP 133/68
--- NOTE | 2022-12-27 17:18 | NUR ---
SHIFT SUMMARY- PT SLEPT FOR MOST OF THIS SHIFT. SHE WAS DIFFICULT TO DIRECT THIS SHIFT. SHE IS INC AND ATTENDS ARE IN PLACE, CHANGED FREQUENTLY DUE TO DIURETIC SCHEDULE. MONITORED THE PT FOR LUNCH DUE TO HER DIFFICULTY EATING BREAKFAST, AND EATING VERY QUICKLY. SPOKE WITH THIS SHIFT AND NOTIFIED HER THAT HER PULSE HAD BEEN STABLE THIS SHIFT AND THIS MORNINGS PULSE MAY HAVE BEEN INACCURATE. BASED OFF THE CONTINIOUS BIOX READINGS SHE IS MAINTAING A PULSE BETWEEN 60-70.
[2022-12-27 20:13] VITALS: BP 107/65
--- NOTE | 2022-12-28 00:23 | NUR ---
PATIENT SEEMS MORE ORIENTED TODAY THAN SHE DID LAST NIGHT WHEN I RECEIVED HER FROM ED. STILL ON 4L NC AND IS NOT ATTEMPTING TO REMOVE CANNUA FROM NOSE OFTEN. SATTING 96% ON THE 4L NC WHEN SHES RESTING. STILL DESATS TO MID 70'S ON ROOM AIR.
--- NOTE | 2022-12-28 03:30 | NUR ---
SHIFT SUMMARY PATIENT A/OX2 PERSON AND PLACE. 4L NC WITH HUMIDITY. CONTINUOUS PULSE OX MONITORING. PATIENT STILL TRIES TO TAKE OFF NASAL CANNULA WHEN ASLEEP. PATIENT WOKE UP AROUND 0030 WANTING SOMETHING TO EAT AND DRINK, ABLE TO FEED HERSELF 3 JELLO'S AND DRANK AN ENSURE, SAT UP IN BED FOR A WHILE, DID NOT ATTEMPT TO GET UP OUT OF BED AND WENT BACK TO SLEEP AROUND 0330. NO PRN'S GIVEN. PATIENT IS REFUSING HEPARIN INJECTIONS. INCONTINENT OF URINE, REQUIRED FULL LINEN CHANGE THIS SHIFT. FALL RISK PRECAUTIONS IN PLACE. BED LOCKED IN LOW POSITION, BED RAILS UP X3, NONSKIC SOCKS ON, BED ALARM ON, CALL LIGHT IN REACH BUT DOES NOT USE APPROPRIATELY. UNABLE TO MAKE NEEDS KNOWN.
[2022-12-28 06:52] LABS: BASOPHILS ABSOLUTE AUTO 0.03 K/mm3 (0.00-0.23); BASOPHILS PERCENT AUTO 1 % (0-2); EOSINOPHILS PERCENT AUTO 5 % (0-6); Hematocrit 40.6 % (33.0-51.0); Hemoglobin 12.7 g/dL (11.5-16.0); IMMATURE GRAN ABSOLUTE AUTO 0.03 K/mm3 (0.00-0.10); IMMATURE GRAN PERCENT AUTO 1 % (0-1); LYMPHOCYTES ABSOLUTE AUTO 1.02 K/mm3 (0.84-5.20); LYMPHOCYTES PERCENT AUTO 18 % (21-46); MONOCYTES ABSOLUTE AUTO 0.62 K/mm3 (0.16-1.47); MONOCYTES PERCENT AUTO 11 % (4-13); Mean Corpuscular HGB 29.4 pg (26.0-34.0); Mean Corpuscular HGB Conc 31.3 g/dL (31.5-36.5); Mean Corpuscular Volume 94 fL (80-100); NEUTROPHILS ABSOLUTE AUTO 3.66 K/mm3 (1.96-9.15); NEUTROPHILS PERCENT AUTO 65 % (41-73); Platelet Count 128 K/mm3 (150-400); RDW Coefficient Variation 16.6 % (11.7-14.2); Red Blood Cell Count 4.32 M/mm3 (3.80-5.20); White Blood Cell Count 5.66 K/mm3 (4.00-11.30)
[2022-12-28 07:07] LABS: Albumin, Blood 2.4 g/dL (3.4-5.0); Albumin/Globulin Ratio 0.8 (0.8-1.8); Bilirubin, Total 0.3 mg/dL (0.1-1.0); Bun/Creatinine Ratio 24.8 (12.0-20.0); Calcium, Blood 8.2 mg/dL (8.5-10.1); Creatinine, Blood 1.41 mg/dL (0.40-1.00); Potassium, Blood 4.4 mmol/L (3.5-5.5); Total Protein, Blood 5.4 g/dL (6.4-8.2)
[2022-12-28 08:03] VITALS: BP 165/81
[2022-12-28 15:46] VITALS: BP 167/99
--- NOTE | 2022-12-28 17:47 | NUR ---
SHIFT SUMMARY PT HAD A VIRTUAL MEETING FOR MEDICARE/MEDICAID TODAY. PT ALERT AND ORIENTED TO SELF AND PLACE. PT NONCOMPLIANT WITH SUBCUTANEOUS INJECTIONS AT TIMES BUT COMPLIES WITH PO MEDICATIONS. PT PULLED OUT R HAND IV STATING "IT HAS BEEN IN THERE LONG ENOUGH." EDUCATED PT REGARDING THE NEED FOR IV ACCESS. VSS. PT LEFT IN A POSITION OF SAFETY WITH BED LOCKED AND IN LOWEST POSITION, NONSKID SOCKS IN PLACE, ROOM CLEAR OF DEBRIS, BED ALARM ENABLED, AND CALL LIGHT WITHIN REACH.
[2022-12-28 19:27] VITALS: BP 153/82
[2022-12-29 03:52] VITALS: BP 148/86
[2022-12-29 05:33] LABS: BASOPHILS ABSOLUTE AUTO 0.03 K/mm3 (0.00-0.23); BASOPHILS PERCENT AUTO 1 % (0-2); EOSINOPHILS ABSOLUTE AUTO 0.37 K/mm3 (0.00-0.68); EOSINOPHILS PERCENT AUTO 6 % (0-6); Hematocrit 41.5 % (33.0-51.0); Hemoglobin 12.9 g/dL (11.5-16.0); IMMATURE GRAN ABSOLUTE AUTO 0.01 K/mm3 (0.00-0.10); IMMATURE GRAN PERCENT AUTO 0 % (0-1); LYMPHOCYTES ABSOLUTE AUTO 1.04 K/mm3 (0.84-5.20); LYMPHOCYTES PERCENT AUTO 17 % (21-46); MONOCYTES ABSOLUTE AUTO 0.73 K/mm3 (0.16-1.47); MONOCYTES PERCENT AUTO 12 % (4-13); Mean Corpuscular HGB 28.7 pg (26.0-34.0); Mean Corpuscular HGB Conc 31.1 g/dL (31.5-36.5); Mean Corpuscular Volume 92 fL (80-100); Mean Platelet Volume 10.6 fL (9.1-12.4); NEUTROPHILS ABSOLUTE AUTO 3.78 K/mm3 (1.96-9.15); NEUTROPHILS PERCENT AUTO 64 % (41-73); Platelet Count 139 K/mm3 (150-400); RDW Standard Deviation 54.2 fL (35.1-46.3); White Blood Cell Count 5.96 K/mm3 (4.00-11.30)
[2022-12-29 06:07] LABS: Albumin, Blood 2.5 g/dL (3.4-5.0); Albumin/Globulin Ratio 0.8 (0.8-1.8); Bilirubin, Total 0.4 mg/dL (0.1-1.0); Bun/Creatinine Ratio 34.5 (12.0-20.0); Calcium, Blood 8.2 mg/dL (8.5-10.1); Creatinine, Blood 1.13 mg/dL (0.40-1.00); Globulin, Blood 3.1 g/dL (2.2-4.0); Total Protein, Blood 5.6 g/dL (6.4-8.2)
--- NOTE | 2022-12-29 06:50 | NUR ---
SUMMARY: PT A/OX2 BUT IS FORGETFULL TO SITUATION AND TIME. SHE REORIENTS W/REMINDERS BUT HAS BED ALARM ON FOR OCCASIONAL IMPULSIVITY W/FALL RISK. SHE REPORTS BEING "SICK OF NEEDLES" SO CONT'D TO REFUSE SQ MED INJECTIONS AND IV REPLACEMENT. BUT WITH EXPLANATION AND ENCOURAGEMENT SHE BECAME AGREEABLE TO HS CBG CHECK, AM LABS AND NEW IV AT 0900 FOR LASIX "IF ABSOLUTELY NECCESSARY". PO MEDS RECIEVED W/O ISSUE THOUGH AND SNACKS PROVIDED UPON REQUEST. SHE WAS INCONTINENT T/O NOCTE W/ATTENDS AND LINEN CHANGED PRN. PT INTERMITTENTLY REMOVES NC AND CONT BIOX W/DESATS NOTED TO 80'S% ON RA BUT SPO2 IS WNL ON 4L HUMIDIFIED O2. NO ACUTE CHANGES, VSS/AFEBRILE. PLAN IS FOR SNF AT [facility] UPON D/C. [facility] AND REPORT TO DAY RN.
[2022-12-29 08:03] VITALS: BP 108/79
[2022-12-29 15:18] VITALS: BP 149/89
--- NOTE | 2022-12-29 18:03 | NUR ---
SHIFT SUMMARY PT UP IN CHAIR FOR MEALS. REFUSING HEPARIN INJECTIONS BUT WAS ABLE TO CONVINCE PT TO RECEIVED INSULIN. INCONTINENT BUT DID GET UP A FEW TIMES TO USE COMMODE. PULLS OXYGEN OUT OF NOSE FREQENTLY AND SATS DROP TO 80'S. HAD 2 SHORT LIVED BLOODY NOSES TODAY. WATER READDED TO HUMIDIFIER.
[2022-12-29 19:57] VITALS: BP 97/84
[2022-12-29 20:37] VITALS: BP 150/96
[2022-12-30 03:11] VITALS: BP 158/131
[2022-12-30 03:26] VITALS: BP 149/88
--- NOTE | 2022-12-30 05:03 | NUR ---
SHIFT SUMMARY PATIENT REFUSED HEPARIN INJECTION, TOOK INSULIN PER EMAR. PATIENT REFUSED AM LABS SAYING SHE IS SICK OF ALL THIS, TRIED TO REDIRECT AND ENCOURAGE PATIENT TO HAVE LABS DRAWN WITH NO SUCCESS. PATIENT PULLS OXYGEN TUBING OUT OF HER NOSE FREQUENTLY AND DESATS INTO THE 80'S, RECOVERS WELL. PATIENT IS CONCRETE IN HER DECISIONS. BED IS LOCKED IN THE LOWEST POSITION WITH CALL LIGHT IN REACH.
[2022-12-30 07:33] VITALS: BP 153/72
--- NOTE | 2022-12-30 10:44 | NUR ---
COMPUTER PRESENTED BLOOD SUGAR OF 350 THE MOST RECENTLY OBSERVED NUMBER, TREATED PT FOR 350. BLOOD SUGAR FOUND TO BE 97 FOR BREAKFAST. RECHECKED PT BLOOD GLUCOSE, GAVE PT CRANBERRY JUICE AND ALERTED DR OF PT STATUS.
--- NOTE | 2022-12-30 10:50 | NUR ---
PT REFUSING TO HAVE LABS DRAWN. PT EDUCATION AND REDIRECTION ATTEMPTED UNSUCCESSFULLY.
[2022-12-30 16:33] VITALS: BP 148/60
--- NOTE | 2022-12-30 17:40 | NUR ---
PT A&O TO SELF AND PLACE. PT FORGETS LIMITATIONS AND IS RESISTENT TO CARE INVOLVING NEEDLES. PT VSS. LABS NOT DRAWN DUE TO PT REFUSAL. NO ACUTE EVENTS AT THIS TIME. PT LEFT IN A POSITION OF SAFETY WITH BED LOCKED AND IN LOWEST POSITION, NONSKID SOCKS IN PLACE, ROOM CLEAR OF DEBRIS, BED/CHAIR ALARM ENABLED, AND CALL LIGHT WITHIN REACH.
[2022-12-30 19:38] VITALS: BP 147/67
[2022-12-31 02:07] VITALS: BP 164/88
--- NOTE | 2022-12-31 05:48 | NUR ---
SHIFT SUMMARY NO ACUTE CHANGES. PATIENT IS IMPULSIVE AT TIMES, BED EXIT ALARM IS ENGAGED. PATIENT REFUSED HEPARIN SHOT BUT AGREED TO TAKE HER INSULIN. PATIENT HAS A PLEASANT AFFECT WITH IRRITABILITY AT TIMES. PATIENT AT TIMES WILL REMOVE HER OXYGEN FROM HER NOSE-ON CONTINUOUS PULSE OXOMETERY. PATIENT AWAKE OFF AND ON T/O SHIFT. PATIENT ALLOWED LAB TO DRAW, LAB WAS UNABLE TO OBTAIN SAMPLE AT THIS TIME. BED IS LOCKED IN THE LOWEST POSITION WITH CALL LIGHT IN REACH FOR SAFETY. NO S/S OF DISTRESS NOTED AT THIS TIME.
[2022-12-31 07:16] VITALS: BP 155/76
--- NOTE | 2022-12-31 09:00 | NUR ---
pt sitting up in chair for breakfast, took po meds without diff, a/o to self, difficult to redirect, impulsive, lungs are clear in upper still, dim in bases, resp even and unlabored, no cough noted, currently on 4 liters 02 via n/c, hrr, no edema noted, iv site to rac, site is clear and patent, btx4, incont of bowl/bladder, briefs in place, skin c/w/d, except some bruising, maew, irvin, call light in reach.
[2022-12-31 11:06] LABS: SARS-Cov-2 (COVID-19) PCR, MMC NEGATIVE (NEGATIVE)
[2022-12-31 13:34] LABS: BASOPHILS ABSOLUTE AUTO 0.05 K/mm3 (0.00-0.23); BASOPHILS PERCENT AUTO 1 % (0-2); EOSINOPHILS ABSOLUTE AUTO 0.44 K/mm3 (0.00-0.68); EOSINOPHILS PERCENT AUTO 7 % (0-6); Hematocrit 51.2 % (33.0-51.0); Hemoglobin 15.9 g/dL (11.5-16.0); IMMATURE GRAN ABSOLUTE AUTO 0.02 K/mm3 (0.00-0.10); IMMATURE GRAN PERCENT AUTO 0 % (0-1); LYMPHOCYTES ABSOLUTE AUTO 1.13 K/mm3 (0.84-5.20); LYMPHOCYTES PERCENT AUTO 17 % (21-46); MONOCYTES ABSOLUTE AUTO 0.74 K/mm3 (0.16-1.47); MONOCYTES PERCENT AUTO 11 % (4-13); Mean Corpuscular HGB 29.1 pg (26.0-34.0); Mean Corpuscular HGB Conc 31.1 g/dL (31.5-36.5); Mean Corpuscular Volume 94 fL (80-100); Mean Platelet Volume 10.3 fL (9.1-12.4); NEUTROPHILS ABSOLUTE AUTO 4.21 K/mm3 (1.96-9.15); NEUTROPHILS PERCENT AUTO 64 % (41-73); Platelet Count 162 K/mm3 (150-400); RDW Coefficient Variation 15.9 % (11.7-14.2); RDW Standard Deviation 54.5 fL (35.1-46.3); Red Blood Cell Count 5.47 M/mm3 (3.80-5.20); White Blood Cell Count 6.59 K/mm3 (4.00-11.30)
[2022-12-31 13:54] LABS: Albumin, Blood 2.6 g/dL (3.4-5.0); Albumin/Globulin Ratio 0.7 (0.8-1.8); Bilirubin, Total 0.5 mg/dL (0.1-1.0); Bun/Creatinine Ratio 39.1 (12.0-20.0); Calcium, Blood 8.3 mg/dL (8.5-10.1); Creatinine, Blood 0.85 mg/dL (0.40-1.00); Globulin, Blood 3.8 g/dL (2.2-4.0); Potassium, Blood 4.2 mmol/L (3.5-5.5); Total Protein, Blood 6.4 g/dL (6.4-8.2)
--- NOTE | 2022-12-31 14:17 | NUR ---
Spoke with Dr Aggarwal and discussed case. Pt scored low on cognitive evaluation, intermittently refusing some care. Friends or family may benefit from goals of care conversation. Pt sitting in chair eating pears upon arrival. Pt is pleasantly confused and denies pain, anxiety, dyspnea, and nausea. Pt reports no concerns at this time. Attempted to contact Marbella Horton who is listed as Pt's healthcare entry level marketing representative on Pt's advanced directive. Phone number listed on AD is same number listed on Pt's face sheet which is not a valid phone number. Attempted to contact LORNE Vaz who is listed as alternate entry level marketing representative and reached a phone number for a [employer]. Left message with request for a return phone call with out leaving any Pt information. Palliative Care will remain available
--- NOTE | 2022-12-31 17:00 | NUR ---
Spoke with Alternate Decision Maker LORNE Vaz (goes by Mil[employer]) a couple times over the phone. He spoke with Primary Decision maker Marbella. They both report feeling hospice is the most appropriate direction for Pt. They are requesting Pt be placed with hospice services and feel SNF would not be beneficial for Pt. Relayed information to care coordinators. Called admitting and had contact information updated. Marbella Horton [phone] LORNE Vaz [phone] Palliative Care will remain available
--- NOTE | 2022-12-31 18:25 | NUR ---
pt doing ok, no acute changes this shift. call light in reach.
[2022-12-31 20:50] VITALS: BP 115/85
--- NOTE | 2022-12-31 21:45 | NUR ---
CALL TO [employer]. RETURN CALL PLACED TO [facility]ORE[facility] FOR AN UPDATE. SHE STATES THAT PATIENT IS RESISTIVE TO CARE FOR THE PAST 4 YEARS SHE HAS BEEN INCOMPLIANT WITH DIABETES MANAGEMENT. REPORTS THAT WHEN PATIENT WAS AT [facility] SHE "ESCAPED" FROM [facility]. REPORTS THAT PATIENT HAS BEEN GOING "[place]" FOR A VERY LONG TIME, REPORTS SHE POCKETS MEDICATION AND GETS RID OF IT LATER D/T THINKING SHE IS BEING POSIONED, CAN BECOME COMBATIVE WITH SEVERE CONFUSION. KITTY REPORTS THAT PATIENT COMES FROM A VERY DISFUNCTIONAL FAMILY LIFE AND ABUSIVE EX-. SHE REPORTS PATIENT HAS DEMENTIA AND WOULD BE SAFEST IN A LOCK DOWN FACILTY.
[2023-01-01 02:12] VITALS: BP 106/64
--- NOTE | 2023-01-01 05:11 | NUR ---
SHIFT SUMMARY PATIENT HAS REMOVED HER OXYGEN SEVERAL TIMES, WHEN RT IN PATIENT SATING AT 93% ON RA-PATIENT DESATING DOWN INTO THE HIGH 80'S-O2 SET AT 2 LPM VIA NASAL CANNULA. PATIENT PLEASANT WITH LAB DRAW. PATIENT PLEASANT AND COOPERATIVE WITH CARE. BED IS LOCKED IN THE LOWEST POSITION WITH CALL LIGHT IN REACH. BED EXIT ENGAGED FOR SAFETY. NO S/S OF DISTRESS NOTED AT THIS TIME.
[2023-01-01 05:35] LABS: BASOPHILS ABSOLUTE AUTO 0.04 K/mm3 (0.00-0.23); BASOPHILS PERCENT AUTO 1 % (0-2); EOSINOPHILS ABSOLUTE AUTO 0.41 K/mm3 (0.00-0.68); EOSINOPHILS PERCENT AUTO 6 % (0-6); Hematocrit 46.3 % (33.0-51.0); Hemoglobin 14.8 g/dL (11.5-16.0); IMMATURE GRAN ABSOLUTE AUTO 0.01 K/mm3 (0.00-0.10); IMMATURE GRAN PERCENT AUTO 0 % (0-1); LYMPHOCYTES ABSOLUTE AUTO 1.68 K/mm3 (0.84-5.20); LYMPHOCYTES PERCENT AUTO 26 % (21-46); MONOCYTES ABSOLUTE AUTO 0.82 K/mm3 (0.16-1.47); MONOCYTES PERCENT AUTO 13 % (4-13); Mean Corpuscular HGB 28.9 pg (26.0-34.0); Mean Corpuscular Volume 90 fL (80-100); NEUTROPHILS ABSOLUTE AUTO 3.56 K/mm3 (1.96-9.15); NEUTROPHILS PERCENT AUTO 55 % (41-73); Platelet Count 166 K/mm3 (150-400); RDW Coefficient Variation 15.4 % (11.7-14.2); RDW Standard Deviation 51.4 fL (35.1-46.3); Red Blood Cell Count 5.12 M/mm3 (3.80-5.20); White Blood Cell Count 6.52 K/mm3 (4.00-11.30)
[2023-01-01 06:06] LABS: Albumin, Blood 2.6 g/dL (3.4-5.0); Albumin/Globulin Ratio 0.8 (0.8-1.8); Bilirubin, Total 0.6 mg/dL (0.1-1.0); Calcium, Blood 8.4 mg/dL (8.5-10.1); Creatinine, Blood 0.9 mg/dL (0.40-1.00); Globulin, Blood 3.4 g/dL (2.2-4.0); Potassium, Blood 4.2 mmol/L (3.5-5.5)
[2023-01-01 07:46] VITALS: BP 153/73
[2023-01-01 15:21] VITALS: BP 164/82
--- NOTE | 2023-01-01 17:23 | NUR ---
SHIFT SUMMARY Pt remains alert to self this shift. VSS. Denies pain. Up to bathroom with min ast/fww. Incontinent most times. Resp even nonlabored on RA. Continuous pulse ox in place as ordered. Pt states she doesnt wear cpap at home thats ordered. No indication of need at this time. Good appetite today, with snacks in between meals. Call light in reach. No needs id or verbalized at this time.
[2023-01-01 20:27] VITALS: BP 145/62
[2023-01-02 02:45] VITALS: BP 140/72
--- NOTE | 2023-01-02 05:29 | NUR ---
SUMMARY PT RESTING QUIETLY IN BED, WAKES EASILY, PT IS PLEASANTLY CONFUSED, DOES NOT USE THE CALL LIGHT, BED ALARM ON FOR SAFETY, PT IS A 1P ASSIST, PT HAS BEEN INCONTINENT OF BOWEL AND BLADDER DURING THE NIGHT, PT IS ABLE TO FEED HERSELF AND HAS HAD SOME "SNACKS" T/O THE NIGHT, CARE MANAGEMENT WORKING ON A SAFE DISCHARGE PLAN, VSS, WILL CONT TO MONITOR
[2023-01-02 06:00] LABS: BASOPHILS ABSOLUTE AUTO 0.04 K/mm3 (0.00-0.23); BASOPHILS PERCENT AUTO 1 % (0-2); EOSINOPHILS ABSOLUTE AUTO 0.36 K/mm3 (0.00-0.68); EOSINOPHILS PERCENT AUTO 6 % (0-6); Hematocrit 43.4 % (33.0-51.0); Hemoglobin 13.9 g/dL (11.5-16.0); IMMATURE GRAN ABSOLUTE AUTO 0.01 K/mm3 (0.00-0.10); IMMATURE GRAN PERCENT AUTO 0 % (0-1); LYMPHOCYTES ABSOLUTE AUTO 1.42 K/mm3 (0.84-5.20); LYMPHOCYTES PERCENT AUTO 24 % (21-46); MONOCYTES ABSOLUTE AUTO 0.87 K/mm3 (0.16-1.47); MONOCYTES PERCENT AUTO 15 % (4-13); Mean Corpuscular HGB 29.2 pg (26.0-34.0); Mean Corpuscular Volume 91 fL (80-100); Mean Platelet Volume 11.3 fL (9.1-12.4); NEUTROPHILS ABSOLUTE AUTO 3.22 K/mm3 (1.96-9.15); NEUTROPHILS PERCENT AUTO 54 % (41-73); Platelet Count 175 K/mm3 (150-400); RDW Coefficient Variation 15.4 % (11.7-14.2); RDW Standard Deviation 52.2 fL (35.1-46.3); Red Blood Cell Count 4.76 M/mm3 (3.80-5.20); White Blood Cell Count 5.92 K/mm3 (4.00-11.30)
[2023-01-02 06:21] LABS: Albumin, Blood 2.6 g/dL (3.4-5.0); Albumin/Globulin Ratio 0.7 (0.8-1.8); Bilirubin, Total 0.4 mg/dL (0.1-1.0); Bun/Creatinine Ratio 40.4 (12.0-20.0); Calcium, Blood 8.6 mg/dL (8.5-10.1); Creatinine, Blood 0.92 mg/dL (0.40-1.00); Globulin, Blood 3.6 g/dL (2.2-4.0); Potassium, Blood 4.7 mmol/L (3.5-5.5); Total Protein, Blood 6.2 g/dL (6.4-8.2)
[2023-01-02 07:28] VITALS: BP 124/56
[2023-01-02 15:55] VITALS: BP 128/85
--- NOTE | 2023-01-02 17:25 | NUR ---
SHIFT SUMMARY: Pt remains alert to self this shift. Pleasantly confused. VSS. Resp even nonlabored on 2L. Slept most of the day with exception of meals and hygiene. Able to feed self with set up. BM today. No acute changes noted. Pain and safety maintained. Will continue to monitor this shift.
[2023-01-02 20:09] VITALS: BP 123/76
[2023-01-03 02:56] VITALS: BP 126/66
--- NOTE | 2023-01-03 06:52 | NUR ---
NOC SHIFT SUMMARY: PT IS TO GO TO [facility] ONCE FINALIZED WITH CASE MANAGEMENT. NO C/O PAIN. BOWEL MOVEMENT OVERNIGHT. ALERT TO SELF ONLY.
[2023-01-03 08:05] VITALS: BP 110/69
[2023-01-03 16:28] VITALS: BP 124/96
--- NOTE | 2023-01-03 20:33 | NUR ---
SHIFT SUMMARY: PT ORIENTED TO SELF. PT IRRITABLE AND NON COOPERATIVE THROUGHOUT SHIFT. PT STATING "NO" TO ALL CARE. ATTEMPTED TO EXPLAIN RATIONALE BEHIND INTERVENTIONS BUT PT BECOME MORE IRRITABLE. PLAN FOR PT TO D/C TOMORROW TO [facility]. PT LIKES TO SIT AT SIDE OF BED. BED ALARM IN PLACE. CALL LIGHT IN REACH. BED IN LOWEST POSITION. REPORT GIVEN TO ONCOMING RN.
--- NOTE | 2023-01-04 05:49 | NUR ---
GREEN MARKETER SUMMARY DBP ELEVATED, OTHERWISE VSS. ASYMPTOMATIC. INTERMITTENT AGITATION. PULLED OUT IV. BUT CALMED DOWN WHEN GIVEN WARM BLANKETS. REFUSED VITAL SIGNS DURING NIGHT. CALL LIGHT IN REACH. INTERMITTENT REDIRECTION AND CALMING TECHNIQUES USED. RESTING QUIETLY AT THIE TIME. WILL CONTINUE TO MONITOR
[2023-01-04 08:14] VITALS: BP 124/108
[2023-01-04 12:31] LABS: SARS-Cov-2 (COVID-19) PCR, MMC NEGATIVE (NEGATIVE)
[2023-01-04] MEDS ORDERED: MICONAZOLE NITR85 GM TOP (12:47)
--- NOTE | 2023-01-04 15:06 | NUR ---
DISCHARGE: PT D/C @1430 VIA WHEELCHAIR W/TRANSPORT TO [facility] TO MEET PT THERE FOR ASSESSMENT. NO IV TO REMOVE. REPORT GIVEN TO [facility] RN @[id number].
--- NOTE | 2023-01-04 15:07 | NUR ---
HOME PRESCRIPTION MEDICATIONS SENT WITH TRANSPORT [facility]
== END 2023-01-04 14:35 | disposition hospice, home (50) | DRG 291 ==
LOC: ER 16:34 → MEDS 21:27
PROVIDERS: Emergency Medicine; Family Medicine; Hospitalist; Nurse Practitioner Acute Care; ADMIT Student in an Organized Health Care Education/Training Program
PROC: 5A09357 Assistance with Respiratory Ventilation, Less than 24 Consecutive Hours, Continuous Positive Airway Pressure (ICD-10-PCS; principal; 2022-12-26)
PROC: 4A133R1 Monitoring of Arterial Saturation, Peripheral, Percutaneous Approach (ICD-10-PCS; 2022-12-26)
PROC: B24BZZZ Ultrasonography of Heart with Aorta (ICD-10-PCS; 2022-12-27)
DX: I13.0 Hypertensive heart and chronic kidney disease with heart failure and stage 1 through stage 4 chronic kidney disease, or unspecified chronic kidney disease (principal); I50.31 Acute diastolic (congestive) heart failure; J96.01 Acute respiratory failure with hypoxia; E46 Unspecified protein-calorie malnutrition; E87.0 Hyperosmolality and hypernatremia; E11.22 Type 2 diabetes mellitus with diabetic chronic kidney disease; I25.10 Atherosclerotic heart disease of native coronary artery without angina pectoris; Z66 Do not resuscitate; R41.81 Age-related cognitive decline; N18.32 Chronic kidney disease, stage 3b; J44.9 Chronic obstructive pulmonary disease, unspecified; R13.10 Dysphagia, unspecified; E78.5 Hyperlipidemia, unspecified; R29.6 Repeated falls; I25.2 Old myocardial infarction; Z60.2 Problems related to living alone; Z88.0 Allergy status to penicillin; Z88.7 Allergy status to serum and vaccine; Z88.5 Allergy status to narcotic agent; Z88.1 Allergy status to other antibiotic agents; Z88.8 Allergy status to other drugs, medicaments and biological substances; Z86.73 Personal history of transient ischemic attack (TIA), and cerebral infarction without residual deficits; Z79.02 Long term (current) use of antithrombotics/antiplatelets; Z79.4 Long term (current) use of insulin; Z11.52 Encounter for screening for COVID-19; Z68.23 Body mass index [BMI] 23.0-23.9, adult
CPT/HCPCS: 0241U; 36415; 36600; 51701; 71045; 71260; 80047; 80048; 80053; 81001; 82803; 82947; 83605; 83735; 83880; 84145; 84443; 84484; 85014; 85025; 87040; 87086; 92610; 93005; 93010; 93306; 94762; 96365-59; 96367-59; 96375-59; 97110; 97110-CQ; 97116; 97129; 97161; 97165; 97530; 97535; 99285-25; A9270; J0696; J1644; J1815; J1940; Q9967; U0002